=== PATIENT | female | born 1955 | race Caucasian/White ===

== ENCOUNTER 2017-09-12 08:00 | Inpatient (IN) | payer BC ==
[~2017-09-12] VITALS: Ht 172.7 cm; Wt 98.4 kg
[2017-09-19] MEDS ORDERED: RINGERS SOLUTION,LACTATED 1,000 ML IV ONE ×2 (10:30→10:37)
[2017-09-19] MEDS ORDERED: LIDOCAINE HCL/PF 1% 5 ML VIAL ONE (11:03)
[2017-09-19] MEDS ORDERED: SODIUM CHLORIDE 0.9% 10 ML ONE (11:07)
[2017-09-19] MEDS ORDERED: BACITRACIN 50,000 UNITS/VIAL ONE (11:08)
[2017-09-19] MEDS ORDERED: SODIUM CL IRRIG SOLN BAG 3,000 ML IRRIG ONE (11:08)
[2017-09-19] MEDS ORDERED: MIDAZOLAM HCL 5 MG/ML VIAL ONE (11:09)
[2017-09-19] MEDS ORDERED: SODIUM HYPOCHLORITE 0.25% [HALF STRENGTH] 473 ML SOLUTION TP ONE (11:15)
[2017-09-19] MEDS ORDERED: MOM30 PO (11:32)
[2017-09-19] MEDS ORDERED: ALPR0.5T8 PO (11:32)
[2017-09-19] MEDS ORDERED: VALS80TA2 PO (11:32)
[2017-09-19] MEDS ORDERED: THIA100T67 PO (11:32)
[2017-09-19] MEDS ORDERED: ETHA25TA2 PO (11:32)
[2017-09-19] MEDS ORDERED: ONDA4 PO (11:32)
[2017-09-19] MEDS ORDERED: CITA10TA68 PO (11:32)
[2017-09-19] MEDS ORDERED: DOCU250C91 PO (11:32)
[2017-09-19] MEDS ORDERED: A20IH1 IH (11:32)
[2017-09-19] MEDS ORDERED: ASPI81 PO (11:32)
[2017-09-19] MEDS ORDERED: POLY15DR38 OU (11:32)
[2017-09-19] MEDS ORDERED: MULT-248 PO (11:32)
[2017-09-19] MEDS ORDERED: HYDR1VIA2 IVP (11:32)
[2017-09-19] MEDS ORDERED: MAGOX PO (11:32)
[2017-09-19] MEDS ORDERED: ACET-2247 PO (11:32)
[2017-09-19] MEDS ORDERED: METO50 PO (11:32)
[2017-09-19] MEDS ORDERED: LACT30L PO (11:32)
[2017-09-19] MEDS ORDERED: INSNOV SQ (11:32)
[2017-09-19] MEDS ORDERED: PROT480P PO (11:32)
[2017-09-19] MEDS ORDERED: ACET500C44 PO (11:32)
[2017-09-19] MEDS ORDERED: DIPH50 PO (11:32)
[2017-09-19] MEDS ORDERED: FAMO20 PO (11:32)
[2017-09-19] MEDS ORDERED: CARV6 PO (11:32)
[2017-09-19] MEDS ORDERED: FERR-89 PO (11:32)
[2017-09-19] MEDS ORDERED: HYDR-309 PO (11:32)
[2017-09-19] MEDS ORDERED: ATOR40TA28 PO (11:32)
[2017-09-19] MEDS ORDERED: SENN-175 PO (11:32)
[2017-09-19 11:41] LABS: BASOPHILS % (AUTO) 0.6 % (0.0-2.0); EOSINOPHILS % (AUTO) 1.7 % (1.0-6.0); HEMATOCRIT 27.7 % (36-46); HEMOGLOBIN 8.4 g/dL (12.0-16.0); LYMPHOCYTES % (AUTO) 19.9 % (22.0-44.0); MEAN CORPUSCULAR HEMOGLOBIN 25.8 pg (26.0-34.0); MEAN CORPUSCULAR HGB CONC 30.2 G/dL (31.0-37.0); MEAN CORPUSCULAR VOLUME 86 fL (80-100); MONOCYTES # (AUTO) 0.2 K/uL (0.1-1.0); MONOCYTES % (AUTO) 4.9 % (2.0-9.0); NEUTROPHILS # (AUTO) 3.6 K/uL (1.8-7.7); NEUTROPHILS % (AUTO) 72.9 % (40.0-70.0); PLATELET COUNT (AUTO) 203 K/uL (150-450); RED BLOOD CELL COUNT(AUTO) 3.24 MIL/uL (4.00-5.20); RED CELL DISTRIBUTION WIDTH 17.9 % (11.5-14.5)
[2017-09-19 11:48] LABS: ANION GAP 1 mmol/L (8-16); CALCIUM, TOTAL 8.7 mg/dL (8.8-10.5); CARBON DIOXIDE 38 mmol/L (22-29); CHLORIDE 102 mmol/L (98-107); CREATININE 0.67 mg/dL (0.60-1.30); GLOMERULAR FILTR. RATE CALC > 60 mL/min (>60); GLUCOSE,RANDOM 136 mg/dL (70-110); POTASSIUM 3.9 mmol/L (3.5-5.1); SODIUM SERUM 141 mmol/L (136-145); UREA NITROGEN, BLOOD 36 mg/dL (7-18)
[2017-09-19 11:49] LABS: INR 1.1 (0.9-1.1)
[2017-09-19 11:54] LABS: ALANINE AMINOTRANSFERASE 22 U/L (12-78); ALBUMIN 2.4 g/dL (3.4-5.0); ALKALINE PHOSPHATASE 76 U/L (46-116); ASPARTATE AMINOTRANSFERASE 18 U/L (15-37); BILIRUBIN,TOTAL 0.2 mg/dL (0.1-1.0); TOTAL PROTEIN, SERUM 6.9 g/dL (6.4-8.2)
[2017-09-19] MEDS ORDERED: HYDROmorphone 2 MG/ML SYRINGE IVP PRN (12:15)
[2017-09-19] MEDS ORDERED: MEPERIDINE HCL/PF 25 MG/0.5 ML AMP IVP PRN (12:15)
[2017-09-19] MEDS ORDERED: GENTAMICIN SULFATE 40 MG/ML 2 ML VIAL IM ONE (12:30)
[2017-09-19] MEDS ORDERED: BUPIVACAINE LIPOSOME/PF 1.3%-13.3MG/ML SUSPENSION 20 ML VIAL INJ ONE (12:45)
[2017-09-19] MEDS ORDERED: BUPIVACAINE HCL/PF 0.25% 30 ML VIAL ONE (12:48)
[2017-09-19] MEDS ORDERED: METHYLENE BLUE 1% 10 ML VIAL ONE (13:01)
[2017-09-19] MEDS ORDERED: SODIUM CHLORIDE 0.9% 1,000 ML IV ONE (13:07)
[2017-09-19] MEDS ORDERED: GELATIN SPONGE,ABSORBABLE 100 MM TP ONE ×3 (13:15→13:57)
[2017-09-19] MEDS ORDERED: THROMBIN, BOVINE 20000 UNITS/VIAL POWDER TP ONE ×2 (13:16→13:22)
[2017-09-19 13:26] VITALS: BP 109/67
[2017-09-19 14:19] VITALS: BP 91/58
[2017-09-19] MEDS ORDERED: CeFAZolin 1 GM/DEXTROSE 50 ML IV SCH ×2 (16:00→21:00)
[2017-09-19] MEDS ORDERED: FentaNYL CITRATE-PF 100 MCG/2 ML VIAL ONE ×2 (16:08→16:40)
[2017-09-19] MEDS: FentaNYL CITRATE-PF 100 MCG/2 ML VIAL IVP PRN ×3 (16:12→16:44)
[2017-09-19 17:24] LABS: BASOPHILS % (AUTO) 0.5 % (0.0-2.0); EOSINOPHILS % (AUTO) 0.3 % (1.0-6.0); HEMATOCRIT 29.7 % (36-46); HEMOGLOBIN 9.4 g/dL (12.0-16.0); LYMPHOCYTES % (AUTO) 9.4 % (22.0-44.0); MEAN CORPUSCULAR HEMOGLOBIN 27.6 pg (26.0-34.0); MEAN CORPUSCULAR HGB CONC 31.7 G/dL (31.0-37.0); MEAN CORPUSCULAR VOLUME 87 fL (80-100); MONOCYTES # (AUTO) 0.2 K/uL (0.1-1.0); MONOCYTES % (AUTO) 1.5 % (2.0-9.0); PLATELET COUNT (AUTO) 212 K/uL (150-450); RED BLOOD CELL COUNT(AUTO) 3.41 MIL/uL (4.00-5.20); RED CELL DISTRIBUTION WIDTH 16.9 % (11.5-14.5)
[2017-09-19 17:29] LABS: NEUTROPHILS % (AUTO) 88.3 % (40.0-70.0)
[2017-09-19] MEDS ORDERED: MORPHINE SULFATE 2 MG/ML SYRINGE IVP PRN (17:30)
[2017-09-19] MEDS ORDERED: ACETAMINOPHEN 325 MG TABLET PO PRN ×2 (17:45→22:00)
[2017-09-19 17:50] VITALS: BP 125/94
[2017-09-19] MEDS ORDERED: VANCOMYCIN HCL 1 GM/D5% WATER 200 ML IV ONE (18:00)
[2017-09-19] MEDS ORDERED: DiphenhydrAMINE HCL 25 MG CAPSULE PO PRN (18:00)
[2017-09-19 18:05] VITALS: BP 101/47
[2017-09-19] MEDS ORDERED: ALBUTEROL SULFATE 2.5 MG/0.5 ML NEB SOLUTION NEB PRN (18:15)
[2017-09-19] MEDS: BACLOFEN 10 MG TABLET PO SCH ×2 (18:20→21:07)
[2017-09-19] MEDS ORDERED: SODIUM CHLORIDE 0.9% 250 ML IV ONE (18:25)
[2017-09-19] MEDS ORDERED: ONDANSETRON HCL 4 MG/2 ML VIAL IVP PRN ×2 (18:30→22:00)
[2017-09-19] MEDS ORDERED: DEXTRAN 70 0.1%/HYPROMELL 0.3% 0.9 ML OPHTHALMIC SOLUTION [PF] OU PRN (18:45)
[2017-09-19 20:00] VITALS: BP 180/98
[2017-09-19] MEDS ORDERED: HYDROmorphone 2 MG/ML SYRINGE IVP ONE (20:45)
[2017-09-19] MEDS ORDERED: CARVEDILOL 6.25 MG TABLET PO SCH (21:00)
[2017-09-19] MEDS ORDERED: [UNRECOGNIZED DRUG - OTHER] PO SCH (21:00)
[2017-09-19] MEDS: ATORVASTATIN CALCIUM 40 MG TABLET PO SCH (21:07)
[2017-09-19] MEDS: VALSARTAN 80 MG TABLET PO SCH (21:07)
[2017-09-19] MEDS: MAGNESIUM OXIDE 400 MG TABLET PO SCH (21:07)
[2017-09-19 21:08] VITALS: BP 133/23
[2017-09-19] MEDS: AcetaZOLAMIDE 250 MG TABLET PO SCH (21:08)
[2017-09-19] MEDS: OXYGEN THERAPY IH SCH ×2 (21:09→22:32)
[2017-09-19] MEDS ORDERED: ZOLPIDEM TARTRATE 5 MG TABLET PO PRN (22:00)
[2017-09-19] MEDS ORDERED: BISACODYL 10 MG RECTAL RECTAL SUPPOSITORY PR PRN (22:00)
[2017-09-19] MEDS ORDERED: MAGNESIUM HYDROXIDE SUSPENSION 30 ML UDCUP PO PRN (22:00)
[2017-09-19] MEDS: METOPROLOL TARTRATE 50 MG TABLET PO SCH (22:32)
[2017-09-19] MEDS: ALPRAZolam 0.5 MG TABLET PO PRN (22:32)
[2017-09-19] MEDS: VANCOMYCIN HCL 1.25 GM in DEXTROSE 5%-WATER 250 ML IV SCH (23:06)
[2017-09-20] VITALS (12 sets, daily range): BP systolic 95–136; BP diastolic 36–98
[2017-09-20] MEDS: HYDROCODONE/ACETAMINOPHEN 5-325 MG TABLET PO PRN ×2 (01:53→06:56)
[2017-09-20] MEDS: MORPHINE SULFATE 2 MG/ML SYRINGE IVP PRN ×3 (05:11→23:03)
[2017-09-20 05:21] LABS: CALCIUM, TOTAL 8.3 mg/dL (8.8-10.5); CREATININE 1.06 mg/dL (0.60-1.30); POTASSIUM 3.8 mmol/L (3.5-5.1)
[2017-09-20] MEDS ORDERED: METOCLOPRAMIDE HCL 5 MG/ML 2 ML VIAL IVP ONE (05:24)
[2017-09-20] MEDS ORDERED: LIDOCAINE HCL/PF 2% 5 ML VIAL IM ONE (05:24)
[2017-09-20] MEDS ORDERED: KETAMINE HCL 50 MG/ML 10 ML VIAL IVP ONE (05:24)
[2017-09-20] MEDS ORDERED: FentaNYL CITRATE-PF 100 MCG/2 ML VIAL IVP ONE (05:24)
[2017-09-20] MEDS ORDERED: PROPOFOL 1% 20 ML VIAL IVP ONE (05:24)
[2017-09-20] MEDS ORDERED: GLYCOPYRROLATE 0.2 MG/ML VIAL IM ONE ×2 (05:24→05:59)
[2017-09-20] MEDS ORDERED: NEOSTIGMINE METHYLSULFATE 1 MG/ML 10 ML VIAL IVP ONE ×2 (05:24→05:59)
[2017-09-20] MEDS ORDERED: MIDAZOLAM HCL 2 MG/2 ML VIAL IVP ONE (05:24)
[2017-09-20] MEDS ORDERED: ACETAMINOPHEN/ISO-OSM 1000 MG/100 ML BOTTLE IV ONE (05:24)
[2017-09-20] MEDS ORDERED: ROCURONIUM BROMIDE 10 MG/ML 5 ML VIAL IVP ONE ×2 (05:24→05:59)
[2017-09-20] MEDS ORDERED: ALBUMIN HUMAN 25%-12.5GM/50ML IV BOTTLE IV ONE (05:24)
[2017-09-20] MEDS ORDERED: SUCCINYLCHOLINE CHLORIDE 20 MG/ML 10 ML VIAL IVP ONE (05:24)
[2017-09-20] MEDS ORDERED: ALBUTEROL SULFATE HFA 90 MCG/PUFF 8 GM INHALER IH ONE (05:59)
[2017-09-20] MEDS: VANCOMYCIN HCL 1.25 GM in DEXTROSE 5%-WATER 250 ML IV SCH ×3 (06:21→22:39)
[2017-09-20] MEDS: INSULIN LISPRO 100 UNITS/ML SQ SCH ×3 (06:22→16:45)
[2017-09-20 06:48] LABS: GLUCOSE,POINT OF CARE 202 MG/DL (70-110)
[2017-09-20] MEDS: FERROUS SULFATE 325 MG EC TABLET PO SCH ×3 (08:33→16:44)
[2017-09-20] MEDS: AcetaZOLAMIDE 250 MG TABLET PO SCH ×2 (08:33→21:12)
[2017-09-20] MEDS: PANTOPRAZOLE SODIUM 40 MG DR TABLET PO SCH (08:33)
[2017-09-20] MEDS: FAMOTIDINE 20 MG TABLET PO SCH (08:33)
[2017-09-20] MEDS: BACLOFEN 10 MG TABLET PO SCH ×3 (08:33→21:11)
[2017-09-20] MEDS: HEPARIN SODIUM,PORCINE 5,000 UNITS/ML VIAL SQ SCH ×4 (08:33→23:04)
[2017-09-20] MEDS: THIAMINE HCL 100 MG TABLET PO SCH (08:33)
[2017-09-20] MEDS: MULTIVITAMINS WITH MINERALS, THERAPEUTIC TABLET PO SCH (08:33)
[2017-09-20] MEDS: CITALOPRAM HYDROBROMIDE 10 MG TABLET PO SCH (08:33)
[2017-09-20] MEDS: MAGNESIUM OXIDE 400 MG TABLET PO SCH ×2 (08:33→21:12)
[2017-09-20] MEDS: DOCUSATE SODIUM 100 MG CAPSULE PO SCH ×2 (08:33→21:12)
[2017-09-20] MEDS: ASPIRIN 81 MG CHEWABLE TABLET PO SCH (08:34)
[2017-09-20] MEDS: ALPRAZolam 0.5 MG TABLET PO PRN (08:39)
[2017-09-20] MEDS: OxyCODONE HCL/ACETAMINOPHEN 5-325 MG TABLET PO PRN (08:39)
[2017-09-20] MEDS: METOPROLOL TARTRATE 50 MG TABLET PO SCH ×2 (09:00→22:39)
[2017-09-20] MEDS: VALSARTAN 80 MG TABLET PO SCH ×2 (09:00→21:14)
[2017-09-20] MEDS: OXYGEN THERAPY IH SCH ×2 (09:10→21:14)
[2017-09-20] MEDS: ETHACRYNIC ACID 25 MG PO SCH ×2 (10:40→21:11)
[2017-09-20] MEDS: INSULIN LISPRO 100 UNITS/ML SQ PRN (11:57)
[2017-09-20 14:04] LABS: GLUCOSE,POINT OF CARE 142 MG/DL (70-110)
[2017-09-20] MEDS: TraMADol HCL 50 MG TABLET PO PRN ×2 (14:19→21:12)
[2017-09-20 18:23] LABS: GLUCOSE,POINT OF CARE 84 MG/DL (70-110)
[2017-09-20] MEDS: ATORVASTATIN CALCIUM 40 MG TABLET PO SCH (21:12)
[2017-09-20 23:28] LABS: GLUCOSE,POINT OF CARE 91 MG/DL (70-110)
[2017-09-21] VITALS (12 sets, daily range): BP systolic 93–121; BP diastolic 37–89
[2017-09-21] MEDS: INSULIN LISPRO 100 UNITS/ML SQ SCH ×3 (06:25→17:30)
[2017-09-21] MEDS: VANCOMYCIN HCL 1.25 GM in DEXTROSE 5%-WATER 250 ML IV SCH (06:25)
[2017-09-21 06:51] LABS: B-TYPE NATRIURETIC PEPTIDE 89 pg/mL (0-100)
[2017-09-21] MEDS: TraMADol HCL 50 MG TABLET PO PRN ×2 (06:54→16:20)
[2017-09-21 06:58] LABS: GLUCOSE,POINT OF CARE 109 MG/DL (70-110)
[2017-09-21 06:59] LABS: ANION GAP 2 mmol/L (8-16); BASOPHILS % (AUTO) 0.3 % (0.0-2.0); CALCIUM, TOTAL 8.4 mg/dL (8.8-10.5); CARBON DIOXIDE 34 mmol/L (22-29); CHLORIDE 99 mmol/L (98-107); CREATINE KINASE, TOTAL 44 U/L (26-192); CREATININE 1.32 mg/dL (0.60-1.30); EOSINOPHILS % (AUTO) 1.3 % (1.0-6.0); GLOMERULAR FILTR. RATE CALC 41 mL/min (>60); GLUCOSE,RANDOM 109 mg/dL (70-110); HEMATOCRIT 22.8 % (36-46); HEMOGLOBIN 7.2 g/dL (12.0-16.0); LYMPHOCYTES # (AUTO) 1.8 K/uL (1.0-4.8); LYMPHOCYTES % (AUTO) 9.6 % (22.0-44.0); MEAN CORPUSCULAR HEMOGLOBIN 27.8 pg (26.0-34.0); MEAN CORPUSCULAR HGB CONC 31.7 G/dL (31.0-37.0); MEAN CORPUSCULAR VOLUME 88 fL (80-100); MONOCYTES # (AUTO) 0.8 K/uL (0.1-1.0); MONOCYTES % (AUTO) 4.3 % (2.0-9.0); NEUTROPHILS # (AUTO) 15.5 K/uL (1.8-7.7); NEUTROPHILS % (AUTO) 84.5 % (40.0-70.0); PLATELET COUNT (AUTO) 215 K/uL (150-450); POTASSIUM 3.9 mmol/L (3.5-5.1); SODIUM SERUM 135 mmol/L (136-145); UREA NITROGEN, BLOOD 43 mg/dL (7-18); VANCOMYCIN,RANDOM 46.6 mcg/mL (25.0-50.0)
[2017-09-21] MEDS: ASPIRIN 81 MG CHEWABLE TABLET PO SCH (08:24)
[2017-09-21] MEDS: ETHACRYNIC ACID 25 MG PO SCH ×2 (08:24→19:40)
[2017-09-21] MEDS: THIAMINE HCL 100 MG TABLET PO SCH (08:24)
[2017-09-21] MEDS: HEPARIN SODIUM,PORCINE 5,000 UNITS/ML VIAL SQ SCH ×3 (08:24→23:13)
[2017-09-21] MEDS: FERROUS SULFATE 325 MG EC TABLET PO SCH ×3 (08:25→18:28)
[2017-09-21] MEDS: PANTOPRAZOLE SODIUM 40 MG DR TABLET PO SCH (08:25)
[2017-09-21] MEDS: MAGNESIUM OXIDE 400 MG TABLET PO SCH ×2 (08:25→19:39)
[2017-09-21] MEDS: MULTIVITAMINS WITH MINERALS, THERAPEUTIC TABLET PO SCH (08:25)
[2017-09-21] MEDS: AcetaZOLAMIDE 250 MG TABLET PO SCH ×2 (08:25→19:42)
[2017-09-21] MEDS: OXYGEN THERAPY IH SCH (08:25)
[2017-09-21] MEDS: CITALOPRAM HYDROBROMIDE 10 MG TABLET PO SCH (08:25)
[2017-09-21] MEDS: BACLOFEN 10 MG TABLET PO SCH ×3 (08:25→19:39)
[2017-09-21] MEDS: FAMOTIDINE 20 MG TABLET PO SCH (08:25)
[2017-09-21] MEDS: VALSARTAN 80 MG TABLET PO SCH ×2 (08:26→19:39)
[2017-09-21] MEDS: DOCUSATE SODIUM 100 MG CAPSULE PO SCH ×2 (08:26→19:39)
[2017-09-21] MEDS: METOPROLOL TARTRATE 50 MG TABLET PO SCH ×2 (08:26→19:42)
[2017-09-21] MEDS: SODIUM CHLORIDE 0.9% 1,000 ML IV SCH (10:43)
[2017-09-21] MEDS ORDERED: SODIUM CHLORIDE 0.9% 500 ML IV ONE (11:09)
[2017-09-21] MEDS ORDERED: VANCOMYCIN HCL 1 GM/D5% WATER 200 ML IV PRN (11:30)
[2017-09-21] MEDS ORDERED: CeFAZolin 1 GM/DEXTROSE 50 ML IV SCH (14:45)
[2017-09-21 16:08] LABS: APPEARANCE,URINE TURBID (CLEAR); BILIRUBIN,URINE NEGATIVE (NEGATIVE); GLUCOSE, URINE (UA) NEGATIVE (NEGATIVE); KETONES,URINE NEGATIVE (NEGATIVE); LEUKOCYTE ESTERASE ,URINE LARGE (NEGATIVE); NITRATE,URINE NEGATIVE (NEGATIVE); OCCULT BLOOD,URINE MODERATE (NEGATIVE); PROTEIN,URINE TRACE (NEGATIVE); UROBILINOGEN,URINE 0.2 mg/dL (<=1.0)
[2017-09-21 16:24] LABS: BACTERIA,URINE Moderate /HPF (None Seen); WBC,URINE >100 /HPF (0-5)
[2017-09-21 16:25] LABS: SQUAMOUS EPITHELIAL CELL,UR Few /LPF (None Seen); YEAST,URINE Many /HPF (None Seen)
[2017-09-21 17:33] LABS: HEMATOCRIT 26.3 % (36-46); HEMOGLOBIN 8.4 g/dL (12.0-16.0)
[2017-09-21 18:34] LABS: GLUCOSE,POINT OF CARE 125 MG/DL (70-110)
[2017-09-21] MEDS: HYDROCODONE/ACETAMINOPHEN 5-325 MG TABLET PO PRN (18:57)
[2017-09-21] MEDS: ATORVASTATIN CALCIUM 40 MG TABLET PO SCH (19:39)
[2017-09-22] VITALS (29 sets, daily range): BP systolic 83–153; BP diastolic 39–75
[2017-09-22] MEDS: ALPRAZolam 0.5 MG TABLET PO PRN (04:17)
[2017-09-22] MEDS: INSULIN LISPRO 100 UNITS/ML SQ PRN (06:26)
[2017-09-22 08:14] LABS: HEMOGLOBIN 8.1 g/dL (12.0-16.0); MEAN CORPUSCULAR HEMOGLOBIN 27.2 pg (26.0-34.0); MEAN CORPUSCULAR HGB CONC 31.3 G/dL (31.0-37.0); MEAN CORPUSCULAR VOLUME 87 fL (80-100); PLATELET COUNT (AUTO) 259 K/uL (150-450); RED CELL DISTRIBUTION WIDTH 18.3 % (11.5-14.5)
[2017-09-22] MEDS: SODIUM CHLORIDE 0.9% 1,000 ML IV SCH (08:38)
[2017-09-22 08:39] LABS: GLUCOMETER DEV NAME(LOC) 5S 1M; GLUCOSE,POINT OF CARE 138 MG/DL (70-110)
[2017-09-22] MEDS: OXYGEN THERAPY IH SCH ×3 (08:44→20:00)
[2017-09-22] MEDS: FAMOTIDINE 20 MG TABLET PO SCH (08:46)
[2017-09-22] MEDS: MULTIVITAMINS WITH MINERALS, THERAPEUTIC TABLET PO SCH (08:46)
[2017-09-22] MEDS: MAGNESIUM OXIDE 400 MG TABLET PO SCH ×2 (08:46→23:22)
[2017-09-22] MEDS: AcetaZOLAMIDE 250 MG TABLET PO SCH ×2 (08:46→23:21)
[2017-09-22] MEDS: CITALOPRAM HYDROBROMIDE 10 MG TABLET PO SCH (08:46)
[2017-09-22] MEDS: VALSARTAN 80 MG TABLET PO SCH ×2 (08:46→23:21)
[2017-09-22] MEDS: THIAMINE HCL 100 MG TABLET PO SCH (08:46)
[2017-09-22] MEDS: PANTOPRAZOLE SODIUM 40 MG DR TABLET PO SCH (08:46)
[2017-09-22] MEDS: HEPARIN SODIUM,PORCINE 5,000 UNITS/ML VIAL SQ SCH ×2 (08:46→16:00)
[2017-09-22] MEDS: ASPIRIN 81 MG CHEWABLE TABLET PO SCH (08:49)
[2017-09-22] MEDS: METOPROLOL TARTRATE 50 MG TABLET PO SCH ×2 (08:49→23:22)
[2017-09-22] MEDS: FERROUS SULFATE 325 MG EC TABLET PO SCH ×3 (08:49→18:00)
[2017-09-22] MEDS: BACLOFEN 10 MG TABLET PO SCH ×3 (08:49→23:20)
[2017-09-22] MEDS: DOCUSATE SODIUM 100 MG CAPSULE PO SCH (08:50)
[2017-09-22] MEDS: ETHACRYNIC ACID 25 MG PO SCH ×2 (08:50→23:20)
[2017-09-22] MEDS: INSULIN LISPRO 100 UNITS/ML SQ SCH ×3 (08:52→17:30)
[2017-09-22 08:53] LABS: CALCIUM, TOTAL 8.3 mg/dL (8.8-10.5); CREATININE 1.12 mg/dL (0.60-1.30); POTASSIUM 3.8 mmol/L (3.5-5.1); VANCOMYCIN,RANDOM 39.5 mcg/mL (25.0-50.0)
[2017-09-22 10:01] LABS: BAND NEUTROPHILS % (MANUAL) 3 % (0-5); EOSINOPHILS % (MANUAL) 1 % (1-6); LYMPHOCYTES % (MANUAL) 8 % (22-44); MONOCYTES % (MANUAL) 4 % (2-9); PROMYELOCYTES % 2 (0-0); SEGMENTED NEUTROPHILS % 82 % (40-70)
[2017-09-22 12:35] LABS: GLUCOMETER DEV NAME(LOC) 5S 1M; GLUCOSE,POINT OF CARE 132 MG/DL (70-110)
[2017-09-22 12:35] LABS: GLUCOMETER DEV NAME(LOC) 5S 1M; GLUCOSE,POINT OF CARE 87 MG/DL (70-110)
[2017-09-22] MEDS ORDERED: ETOMIDATE 2 MG/ML 10 ML VIAL IV ONE (17:46)
[2017-09-22 18:29] LABS: GLUCOMETER DEV NAME(LOC) 5S 2Q; GLUCOSE,POINT OF CARE 153 MG/DL (70-110)
[2017-09-22 18:29] LABS: GLUCOMETER DEV NAME(LOC) 5S 2Q; GLUCOSE,POINT OF CARE 109 MG/DL (70-110)
[2017-09-22 18:35] LABS: GLUCOMETER DEV NAME(LOC) 5S 2Q; GLUCOSE,POINT OF CARE 88 MG/DL (70-110)
[2017-09-22 20:00] LABS: ABG A-A DIFF O2 419.6 mmHg (10-20.0); ABG BASE EXCESS 1.6 mmol/L (-2.0-3.0); ABG CARBOXYHEMOGLOBIN 1.9 % (0.0-1.5); ABG HCO3 24.3 mmol/L (22.0-26.0); ABG METHEMOGLOBIN 0.2 % (0.0-1.5); ABG OXYGEN CONTENT 15.5 mL/dL (15.0-23.0); ABG OXYGEN SATURATION 99.5 % (95.0-98.0); ABG OXYHEMOGLOBIN 97.4 % (94.0-100.0); PO2, ARTERIAL BG 199.3 mmHg (79.0-87.0); SOURCE, BLOOD GAS ARTERIAL; TEMPERATURE, FAHRENHEIT, BG 98.6 FAHREN (96.0-98.6)
[2017-09-22 20:03] LABS: ABG PCO2 94 mmHg (35-45); ABG PH 7.132 (7.35-7.450); O2 DEVICE,BLOOD GAS NON REBREATHER (ROOM AIR); SITE, BLOOD GAS RT RADIAL
[2017-09-22] MEDS ORDERED: FLUMAZENIL 0.1 MG/ML 5 ML VIAL IVP ONE (20:30)
[2017-09-22 20:57] LABS: HEMATOCRIT 31.9 % (36-46); HEMOGLOBIN 9.9 g/dL (12.0-16.0); MEAN CORPUSCULAR HEMOGLOBIN 27.6 pg (26.0-34.0); MEAN CORPUSCULAR VOLUME 89 fL (80-100); PLATELET COUNT (AUTO) 253 K/uL (150-450); RED BLOOD CELL COUNT(AUTO) 3.58 MIL/uL (4.00-5.20); RED CELL DISTRIBUTION WIDTH 19.3 % (11.5-14.5)
[2017-09-22 21:31] LABS: ABG A-A DIFF O2 523.3 mmHg (10-20.0); ABG BASE EXCESS 2.7 mmol/L (-2.0-3.0); ABG CARBOXYHEMOGLOBIN 1.5 % (0.0-1.5); ABG HCO3 25.2 mmol/L (22.0-26.0); ABG METHEMOGLOBIN 0.4 % (0.0-1.5); ABG OXYGEN SATURATION 95.2 % (95.0-98.0); ABG OXYHEMOGLOBIN 93.4 % (94.0-100.0); ABG TOTAL HEMOGLOBIN 10.6 G/dL (12.0-18.0); PO2, ARTERIAL BG 89.2 mmHg (79.0-87.0); SOURCE, BLOOD GAS ARTERIAL
[2017-09-22 21:32] LABS: ABG PCO2 98 mmHg (35-45); ABG PH 7.131 (7.35-7.450); O2 DEVICE,BLOOD GAS NON REBREATHER (ROOM AIR); SITE, BLOOD GAS RT RADIAL
[2017-09-22 21:45] LABS: CALCIUM, TOTAL 8.5 mg/dL (8.8-10.5); CREATININE 1.4 mg/dL (0.60-1.30); POTASSIUM 3.8 mmol/L (3.5-5.1)
[2017-09-22 21:51] LABS: ALBUMIN 2.3 g/dL (3.4-5.0); BILIRUBIN,TOTAL 0.5 mg/dL (0.1-1.0); TOTAL PROTEIN, SERUM 6.6 g/dL (6.4-8.2)
[2017-09-22 21:55] LABS: BAND NEUTROPHILS % (MANUAL) 15 % (0-5); LYMPHOCYTES % (MANUAL) 3 % (22-44); MONOCYTES % (MANUAL) 7 % (2-9); SEGMENTED NEUTROPHILS % 75 % (40-70)
[2017-09-22] MEDS ORDERED: SODIUM CHLORIDE 0.9% 250 ML IV ONE (22:24)
[2017-09-22] MEDS: POTASSIUM CHL 20 MEQ/0.9% NS 1,000 ML IV SCH ×2 (22:50→22:51)
[2017-09-22] MEDS ORDERED: MAGNESIUM HYDROXIDE SUSPENSION 30 ML UDCUP PO PRN (23:00)
[2017-09-22] MEDS: ATORVASTATIN CALCIUM 40 MG TABLET PO SCH (23:22)
[2017-09-22] MEDS: PROPOFOL 1000 MG/ISO-OSM 100 ML IV PRN (23:30)
[2017-09-23] VITALS (7 sets, daily range): BP systolic 125–163; BP diastolic 51–87
[2017-09-23 00:28] LABS: ABG A-A DIFF O2 127.9 mmHg (10-20.0); ABG BASE EXCESS 4.5 mmol/L (-2.0-3.0); ABG CARBOXYHEMOGLOBIN 1.7 % (0.0-1.5); ABG HCO3 28.2 mmol/L (22.0-26.0); ABG METHEMOGLOBIN 0.1 % (0.0-1.5); ABG OXYGEN CONTENT 13.4 mL/dL (15.0-23.0); ABG OXYGEN SATURATION 98.6 % (95.0-98.0); ABG OXYHEMOGLOBIN 96.8 % (94.0-100.0); ABG PCO2 43 mmHg (35-45); ABG PH 7.443 (7.35-7.450); ABG TOTAL HEMOGLOBIN 9.7 G/dL (12.0-18.0); O2 DEVICE,BLOOD GAS VENTILATOR (ROOM AIR); PO2, ARTERIAL BG 108.1 mmHg (79.0-87.0); SITE, BLOOD GAS RT RADIAL; SOURCE, BLOOD GAS ARTERIAL; TEMPERATURE, FAHRENHEIT, BG 98.6 FAHREN (96.0-98.6)
[2017-09-23 00:29] LABS: PEEP,BG 5 cm H2O; VT, ABG 550 ml
[2017-09-23] MEDS: DEXTROSE 50%-WATER 25 GM/50 ML SYRINGE IVP PRN ×2 (00:34→06:27)
[2017-09-23 01:29] LABS: GLUCOMETER DEV NAME(LOC) 5S 1M; GLUCOSE,POINT OF CARE 90 MG/DL (70-110)
[2017-09-23] MEDS: PROPOFOL 1000 MG/ISO-OSM 100 ML IV PRN ×5 (01:48→20:05)
[2017-09-23] MEDS: POTASSIUM CHL 20 MEQ/0.9% NS 1,000 ML IV SCH ×2 (03:27→12:09)
[2017-09-23 05:27] LABS: BASOPHILS % (AUTO) 0.2 % (0.0-2.0); EOSINOPHILS % (AUTO) 0.6 % (1.0-6.0); HEMATOCRIT 28.1 % (36-46); HEMOGLOBIN 9.1 g/dL (12.0-16.0); LYMPHOCYTES # (AUTO) 1.3 K/uL (1.0-4.8); LYMPHOCYTES % (AUTO) 9.6 % (22.0-44.0); MEAN CORPUSCULAR HEMOGLOBIN 27.9 pg (26.0-34.0); MEAN CORPUSCULAR HGB CONC 32.4 G/dL (31.0-37.0); MEAN CORPUSCULAR VOLUME 86 fL (80-100); MONOCYTES # (AUTO) 0.7 K/uL (0.1-1.0); MONOCYTES % (AUTO) 5.1 % (2.0-9.0); NEUTROPHILS # (AUTO) 11.7 K/uL (1.8-7.7); NEUTROPHILS % (AUTO) 84.5 % (40.0-70.0); PLATELET COUNT (AUTO) 207 K/uL (150-450); RED BLOOD CELL COUNT(AUTO) 3.26 MIL/uL (4.00-5.20); RED CELL DISTRIBUTION WIDTH 18.7 % (11.5-14.5)
[2017-09-23 05:33] LABS: CALCIUM, TOTAL 8.4 mg/dL (8.8-10.5); CREATININE 1.26 mg/dL (0.60-1.30); POTASSIUM 3.4 mmol/L (3.5-5.1)
[2017-09-23] MEDS: INSULIN LISPRO 100 UNITS/ML SQ SCH ×3 (06:21→17:00)
[2017-09-23] MEDS: ETHACRYNIC ACID 25 MG PO SCH ×2 (08:28→22:18)
[2017-09-23] MEDS: VALSARTAN 80 MG TABLET PO SCH ×2 (08:29→22:45)
[2017-09-23] MEDS: FERROUS SULFATE 325 MG EC TABLET PO SCH ×3 (08:30→18:25)
[2017-09-23] MEDS: MULTIVITAMINS WITH MINERALS, THERAPEUTIC TABLET PO SCH (08:30)
[2017-09-23] MEDS: OXYGEN THERAPY IH SCH ×2 (08:31→19:54)
[2017-09-23 08:33] LABS: GLUCOSE,POINT OF CARE 128 MG/DL (70-110)
[2017-09-23 08:33] LABS: GLUCOSE,POINT OF CARE 64 MG/DL (70-110)
[2017-09-23 08:33] LABS: GLUCOSE,POINT OF CARE 72 MG/DL (70-110)
[2017-09-23 08:33] LABS: GLUCOSE,POINT OF CARE 124 MG/DL (70-110)
[2017-09-23 08:33] LABS: GLUCOSE,POINT OF CARE 65 MG/DL (70-110)
[2017-09-23] MEDS: THIAMINE HCL 100 MG TABLET PO SCH (08:33)
[2017-09-23] MEDS: ASPIRIN 81 MG CHEWABLE TABLET PO SCH (08:33)
[2017-09-23] MEDS: MAGNESIUM OXIDE 400 MG TABLET PO SCH ×2 (08:33→20:51)
[2017-09-23] MEDS: METOPROLOL TARTRATE 50 MG TABLET PO SCH ×2 (08:33→20:52)
[2017-09-23] MEDS: BACLOFEN 10 MG TABLET PO SCH ×3 (08:33→22:18)
[2017-09-23] MEDS: PANTOPRAZOLE SODIUM 40 MG DR TABLET PO SCH (08:33)
[2017-09-23] MEDS: FAMOTIDINE 20 MG TABLET PO SCH (08:34)
[2017-09-23] MEDS: CITALOPRAM HYDROBROMIDE 10 MG TABLET PO SCH (08:34)
[2017-09-23] MEDS: HEPARIN SODIUM,PORCINE 5,000 UNITS/ML VIAL SQ SCH ×4 (08:34→23:52)
[2017-09-23] MEDS: AcetaZOLAMIDE 250 MG TABLET PO SCH ×2 (08:37→20:54)
[2017-09-23] MEDS ORDERED: ASPIRIN 81 MG CHEWABLE TABLET PO SCH (09:00)
[2017-09-23] MEDS ORDERED: CITALOPRAM HYDROBROMIDE 10 MG TABLET PO SCH (09:00)
[2017-09-23] MEDS: AZTREONAM 2 GM in DEXTROSE 5%-WATER 50 ML IV SCH ×2 (15:42→22:47)
[2017-09-23] MEDS: RINGERS SOLUTION,LACTATED 1,000 ML IV SCH ×2 (15:43→23:53)
[2017-09-23 16:07] LABS: C.DIFF GDH ANTIGEN, Stool Negative (Negative); C.DIFF TOXINS A&B, Stool Negative (Negative)
[2017-09-23 20:09] LABS: GLUCOSE,POINT OF CARE 90 MG/DL (70-110)
[2017-09-23 20:09] LABS: GLUCOSE,POINT OF CARE 104 MG/DL (70-110)
[2017-09-23] MEDS: ATORVASTATIN CALCIUM 40 MG TABLET PO SCH (20:51)
[2017-09-23] MEDS: DOCUSATE SODIUM 250 MG CAPSULE PO SCH (20:55)
[2017-09-23] MEDS ORDERED: ATORVASTATIN CALCIUM 40 MG TABLET PO SCH (21:00)
[2017-09-23] MEDS: OxyCODONE HCL/ACETAMINOPHEN 5-325 MG TABLET PO PRN (23:17)
[2017-09-24 00:17] VITALS: BP 129/58
[2017-09-24 01:18] LABS: GLUCOSE,POINT OF CARE 121 MG/DL (70-110)
[2017-09-24 04:00] VITALS: BP 115/52
[2017-09-24 04:43] LABS: BASOPHILS % (AUTO) 0.5 % (0.0-2.0); EOSINOPHILS % (AUTO) 1.5 % (1.0-6.0); HEMATOCRIT 30.2 % (36-46); HEMOGLOBIN 9.7 g/dL (12.0-16.0); LYMPHOCYTES # (AUTO) 1.1 K/uL (1.0-4.8); LYMPHOCYTES % (AUTO) 8.3 % (22.0-44.0); MEAN CORPUSCULAR HEMOGLOBIN 27.5 pg (26.0-34.0); MEAN CORPUSCULAR VOLUME 86 fL (80-100); MONOCYTES # (AUTO) 0.8 K/uL (0.1-1.0); MONOCYTES % (AUTO) 5.8 % (2.0-9.0); NEUTROPHILS # (AUTO) 10.8 K/uL (1.8-7.7); NEUTROPHILS % (AUTO) 83.9 % (40.0-70.0); PLATELET COUNT (AUTO) 269 K/uL (150-450); RED BLOOD CELL COUNT(AUTO) 3.51 MIL/uL (4.00-5.20); RED CELL DISTRIBUTION WIDTH 19.6 % (11.5-14.5)
[2017-09-24 05:01] LABS: ANION GAP 9 mmol/L (8-16); CALCIUM, TOTAL 8.6 mg/dL (8.8-10.5); CARBON DIOXIDE 29 mmol/L (22-29); CHLORIDE 101 mmol/L (98-107); CREATINE KINASE, TOTAL 34 U/L (26-192); CREATININE 0.96 mg/dL (0.60-1.30); GLOMERULAR FILTR. RATE CALC 59 mL/min (>60); GLUCOSE,RANDOM 133 mg/dL (70-110); SODIUM SERUM 139 mmol/L (136-145); UREA NITROGEN, BLOOD 38 mg/dL (7-18)
[2017-09-24 05:06] LABS: B-TYPE NATRIURETIC PEPTIDE 149 pg/mL (0-100)
[2017-09-24 05:17] LABS: POTASSIUM 2.9 mmol/L (3.5-5.1)
[2017-09-24] MEDS ORDERED: POTASSIUM CHL 10 MEQ/WATER 50 ML IV PRN (05:45)
[2017-09-24] MEDS: POTASSIUM CHL 10 MEQ/WATER 50 ML IV PRN ×8 (06:04→23:12)
[2017-09-24] MEDS: INSULIN LISPRO 100 UNITS/ML SQ SCH ×3 (06:13→17:47)
[2017-09-24 06:49] LABS: GLUCOSE,POINT OF CARE 128 MG/DL (70-110)
[2017-09-24] MEDS: AZTREONAM 2 GM in DEXTROSE 5%-WATER 50 ML IV SCH ×3 (06:49→23:12)
[2017-09-24] MEDS: PROPOFOL 1000 MG/ISO-OSM 100 ML IV PRN ×4 (06:51→23:13)
[2017-09-24 08:00] VITALS: BP 135/65
[2017-09-24] MEDS: FERROUS SULFATE 325 MG EC TABLET PO SCH ×3 (08:52→16:42)
[2017-09-24] MEDS: HEPARIN SODIUM,PORCINE 5,000 UNITS/ML VIAL SQ SCH ×2 (08:52→16:41)
[2017-09-24] MEDS: OXYGEN THERAPY IH SCH ×2 (08:53→20:52)
[2017-09-24] MEDS: CITALOPRAM HYDROBROMIDE 10 MG TABLET PO SCH (08:58)
[2017-09-24] MEDS: FAMOTIDINE 20 MG TABLET PO SCH (08:58)
[2017-09-24] MEDS: BACLOFEN 10 MG TABLET PO SCH ×3 (08:59→20:55)
[2017-09-24] MEDS: MULTIVITAMINS WITH MINERALS, THERAPEUTIC TABLET PO SCH (09:00)
[2017-09-24] MEDS: VALSARTAN 80 MG TABLET PO SCH ×2 (09:00→20:55)
[2017-09-24] MEDS: THIAMINE HCL 100 MG TABLET PO SCH (09:00)
[2017-09-24] MEDS: MAGNESIUM OXIDE 400 MG TABLET PO SCH ×2 (09:00→20:56)
[2017-09-24] MEDS: AcetaZOLAMIDE 250 MG TABLET PO SCH ×2 (09:01→20:54)
[2017-09-24] MEDS: ASPIRIN 81 MG CHEWABLE TABLET PO SCH (09:01)
[2017-09-24] MEDS: METOPROLOL TARTRATE 50 MG TABLET PO SCH ×2 (09:01→20:56)
[2017-09-24] MEDS: ETHACRYNIC ACID 25 MG PO SCH ×2 (09:03→20:53)
[2017-09-24] MEDS: POTASSIUM CHLORIDE 10% 40 MEQ/30 ML LIQUID UDCUP NG PRN (09:04)
[2017-09-24] MEDS: PANTOPRAZOLE SODIUM 40 MG/VIAL IVP SCH (09:32)
[2017-09-24] MEDS: RINGERS SOLUTION,LACTATED 1,000 ML IV SCH ×2 (11:21→20:53)
[2017-09-24] MEDS: ALPRAZolam 0.5 MG TABLET PO PRN (11:26)
[2017-09-24] MEDS: BACITRACIN 28.4 GM OINTMENT TP SCH ×2 (11:27→20:57)
[2017-09-24 12:00] VITALS: BP 155/98
[2017-09-24 14:30] LABS: POTASSIUM 3.4 mmol/L (3.5-5.1)
[2017-09-24 16:00] VITALS: BP 163/76
[2017-09-24 16:43] LABS: MAGNESIUM 1.8 mg/dL (1.80-2.40)
[2017-09-24 20:00] VITALS: BP 176/84
[2017-09-24] MEDS ORDERED: SODIUM CHLORIDE 0.9% 250 ML IV ONE (20:50)
[2017-09-24] MEDS: DOCUSATE SODIUM 250 MG CAPSULE PO SCH (20:54)
[2017-09-24] MEDS: ATORVASTATIN CALCIUM 40 MG TABLET PO SCH (20:56)
[2017-09-25] VITALS (7 sets, daily range): BP systolic 136–175; BP diastolic 67–84
[2017-09-25] MEDS: HEPARIN SODIUM,PORCINE 5,000 UNITS/ML VIAL SQ SCH ×4 (00:22→23:50)
[2017-09-25] MEDS: PROPOFOL 1000 MG/ISO-OSM 100 ML IV PRN ×4 (02:41→20:02)
[2017-09-25 05:19] LABS: ANION GAP 9 mmol/L (8-16); CALCIUM, TOTAL 8.4 mg/dL (8.8-10.5); CARBON DIOXIDE 26 mmol/L (22-29); CHLORIDE 102 mmol/L (98-107); CREATININE 0.68 mg/dL (0.60-1.30); GLOMERULAR FILTR. RATE CALC > 60 mL/min (>60); GLUCOSE,RANDOM 158 mg/dL (70-110); SODIUM SERUM 137 mmol/L (136-145); UREA NITROGEN, BLOOD 30 mg/dL (7-18)
[2017-09-25 06:03] LABS: BASOPHILS % (AUTO) 0.2 % (0.0-2.0); EOSINOPHILS % (AUTO) 0.2 % (1.0-6.0); HEMATOCRIT 30.8 % (36-46); LYMPHOCYTES # (AUTO) 1.1 K/uL (1.0-4.8); LYMPHOCYTES % (AUTO) 8.9 % (22.0-44.0); MEAN CORPUSCULAR HEMOGLOBIN 27.9 pg (26.0-34.0); MEAN CORPUSCULAR HGB CONC 32.5 G/dL (31.0-37.0); MEAN CORPUSCULAR VOLUME 86 fL (80-100); MONOCYTES # (AUTO) 0.8 K/uL (0.1-1.0); MONOCYTES % (AUTO) 6.3 % (2.0-9.0); NEUTROPHILS # (AUTO) 10.7 K/uL (1.8-7.7); NEUTROPHILS % (AUTO) 84.4 % (40.0-70.0); PLATELET COUNT (AUTO) 314 K/uL (150-450); RED BLOOD CELL COUNT(AUTO) 3.59 MIL/uL (4.00-5.20); RED CELL DISTRIBUTION WIDTH 19.1 % (11.5-14.5)
[2017-09-25] MEDS: RINGERS SOLUTION,LACTATED 1,000 ML IV SCH ×2 (06:19→15:43)
[2017-09-25] MEDS: AZTREONAM 2 GM in DEXTROSE 5%-WATER 50 ML IV SCH ×3 (06:19→23:01)
[2017-09-25] MEDS: INSULIN LISPRO 100 UNITS/ML SQ SCH ×3 (06:21→17:39)
[2017-09-25] MEDS: POTASSIUM CHL 10 MEQ/WATER 50 ML IV PRN ×4 (06:26→09:49)
[2017-09-25 06:58] LABS: GLUCOSE,POINT OF CARE 96 MG/DL (70-110)
[2017-09-25 06:58] LABS: GLUCOSE,POINT OF CARE 125 MG/DL (70-110)
[2017-09-25 06:58] LABS: GLUCOSE,POINT OF CARE 155 MG/DL (70-110)
[2017-09-25 06:58] LABS: GLUCOSE,POINT OF CARE 131 MG/DL (70-110)
[2017-09-25] MEDS: OXYGEN THERAPY IH SCH ×2 (08:13→20:05)
[2017-09-25] MEDS: BACITRACIN 28.4 GM OINTMENT TP SCH ×2 (08:13→20:04)
[2017-09-25] MEDS: ASPIRIN 81 MG CHEWABLE TABLET PO SCH (08:15)
[2017-09-25] MEDS: THIAMINE HCL 100 MG TABLET PO SCH (08:15)
[2017-09-25] MEDS: PANTOPRAZOLE SODIUM 40 MG/VIAL IVP SCH (08:15)
[2017-09-25] MEDS: MAGNESIUM OXIDE 400 MG TABLET PO SCH ×2 (08:15→20:03)
[2017-09-25] MEDS: METOPROLOL TARTRATE 50 MG TABLET PO SCH ×2 (08:16→20:03)
[2017-09-25] MEDS: FERROUS SULFATE 325 MG EC TABLET PO SCH ×2 (08:16→12:16)
[2017-09-25] MEDS: VALSARTAN 80 MG TABLET PO SCH ×2 (09:41→20:02)
[2017-09-25] MEDS: AcetaZOLAMIDE 250 MG TABLET PO SCH ×2 (09:41→20:02)
[2017-09-25] MEDS: ETHACRYNIC ACID 25 MG PO SCH ×2 (09:41→20:02)
[2017-09-25] MEDS: FAMOTIDINE 20 MG TABLET PO SCH (09:42)
[2017-09-25] MEDS: CITALOPRAM HYDROBROMIDE 10 MG TABLET PO SCH (09:42)
[2017-09-25] MEDS: BACLOFEN 10 MG TABLET PO SCH ×3 (09:42→20:03)
[2017-09-25] MEDS: MULTIVITAMINS WITH MINERALS, THERAPEUTIC TABLET PO SCH (09:43)
[2017-09-25] MEDS: INSULIN LISPRO 100 UNITS/ML SQ PRN ×2 (12:20→17:41)
[2017-09-25] MEDS ORDERED: DEXTROSE 50%-WATER 25 GM/50 ML SYRINGE IVP PRN (12:30)
[2017-09-25 13:44] LABS: GLUCOSE,POINT OF CARE 154 MG/DL (70-110)
[2017-09-25] MEDS: AMINO ACIDS/PROTEIN HYDROLYS 30 ML TUBE PO SCH ×3 (13:51→20:59)
[2017-09-25] MEDS: FERROUS SULFATE 300 MG/5 ML LIQUID UDCUP NG SCH ×2 (15:45→20:02)
[2017-09-25 17:49] LABS: GLUCOSE,POINT OF CARE 141 MG/DL (70-110)
[2017-09-25] MEDS ORDERED: POTASSIUM CHL 10 MEQ/WATER 50 ML IV PRN (18:30)
[2017-09-25] MEDS ORDERED: POTASSIUM CHLORIDE 10% 40 MEQ/30 ML LIQUID UDCUP NG PRN (18:30)
[2017-09-25] MEDS: POTASSIUM CHLORIDE 10% 40 MEQ/30 ML LIQUID UDCUP NG PRN (18:53)
[2017-09-25] MEDS: ATORVASTATIN CALCIUM 40 MG TABLET PO SCH (20:03)
[2017-09-25] MEDS: DOCUSATE SODIUM 250 MG CAPSULE PO SCH (20:04)
[2017-09-26] VITALS (13 sets, daily range): BP systolic 125–166; BP diastolic 60–88
[2017-09-26] MEDS: PROPOFOL 1000 MG/ISO-OSM 100 ML IV PRN ×4 (01:02→20:29)
[2017-09-26] MEDS: POTASSIUM CHLORIDE 10% 40 MEQ/30 ML LIQUID UDCUP NG PRN (01:03)
[2017-09-26] MEDS: RINGERS SOLUTION,LACTATED 1,000 ML IV SCH (01:40)
[2017-09-26] MEDS ORDERED: SODIUM CHLORIDE 0.9% 250 ML IV ONE (03:51)
[2017-09-26] MEDS: INSULIN LISPRO 100 UNITS/ML SQ SCH ×3 (06:00→17:06)
[2017-09-26] MEDS: INSULIN LISPRO 100 UNITS/ML SQ PRN ×2 (06:01→17:04)
[2017-09-26] MEDS: AZTREONAM 2 GM in DEXTROSE 5%-WATER 50 ML IV SCH ×3 (06:01→23:28)
[2017-09-26 06:49] LABS: GLUCOSE,POINT OF CARE 135 MG/DL (70-110)
[2017-09-26 06:49] LABS: GLUCOSE,POINT OF CARE 163 MG/DL (70-110)
[2017-09-26 06:56] LABS: POTASSIUM 3.7 mmol/L (3.5-5.1)
[2017-09-26] MEDS: OXYGEN THERAPY IH SCH ×2 (08:00→20:28)
[2017-09-26 08:06] LABS: ABG A-A DIFF O2 69.1 mmHg (10-20.0); ABG CARBOXYHEMOGLOBIN 0.4 % (0.0-1.5); ABG METHEMOGLOBIN 0.3 % (0.0-1.5); ABG OXYGEN CONTENT 15.2 mL/dL (15.0-23.0); ABG OXYGEN SATURATION 99.1 % (95.0-98.0); ABG OXYHEMOGLOBIN 98.4 % (94.0-100.0); ABG PCO2 32 mmHg (35-45); ABG TOTAL HEMOGLOBIN 10.8 G/dL (12.0-18.0); O2 DEVICE,BLOOD GAS VENTILATOR (ROOM AIR); PEEP,BG 5 cm H2O; PO2, ARTERIAL BG 142.9 mmHg (79.0-87.0); SITE, BLOOD GAS RT RADIAL; SOURCE, BLOOD GAS ARTERIAL; SPONTANEOUS VT, BG 524 ml; TEMPERATURE, FAHRENHEIT, BG 98.6 FAHREN (96.0-98.6); VT, ABG 550 ml
[2017-09-26] MEDS: OxyCODONE HCL/ACETAMINOPHEN 5-325 MG TABLET PO PRN (08:26)
[2017-09-26] MEDS: FAMOTIDINE 20 MG TABLET PO SCH (09:00)
[2017-09-26] MEDS: AMINO ACIDS/PROTEIN HYDROLYS 30 ML TUBE PO SCH ×4 (09:00→20:39)
[2017-09-26] MEDS: HEPARIN SODIUM,PORCINE 5,000 UNITS/ML VIAL SQ SCH ×3 (09:36→23:28)
[2017-09-26] MEDS: PANTOPRAZOLE SODIUM 40 MG/VIAL IVP SCH (09:36)
[2017-09-26] MEDS: MULTIVITAMINS, THERAPEUTIC 15 ML UDCUP NG SCH (09:37)
[2017-09-26] MEDS: VALSARTAN 80 MG TABLET PO SCH (09:37)
[2017-09-26] MEDS: AcetaZOLAMIDE 250 MG TABLET PO SCH ×2 (09:38→20:38)
[2017-09-26] MEDS: CITALOPRAM HYDROBROMIDE 10 MG TABLET PO SCH (09:40)
[2017-09-26] MEDS: ETHACRYNIC ACID 25 MG PO SCH ×2 (09:40→20:37)
[2017-09-26] MEDS: BACLOFEN 10 MG TABLET PO SCH ×3 (09:41→20:37)
[2017-09-26] MEDS: FERROUS SULFATE 300 MG/5 ML LIQUID UDCUP NG SCH ×3 (09:42→20:36)
[2017-09-26] MEDS: THIAMINE HCL 100 MG TABLET PO SCH (09:43)
[2017-09-26] MEDS: ASPIRIN 81 MG CHEWABLE TABLET PO SCH (09:43)
[2017-09-26] MEDS: METOPROLOL TARTRATE 50 MG TABLET PO SCH ×2 (09:47→20:38)
[2017-09-26] MEDS: MAGNESIUM OXIDE 400 MG TABLET PO SCH ×2 (09:47→20:38)
[2017-09-26 10:47] LABS: BASOPHILS % (AUTO) 0.6 % (0.0-2.0); EOSINOPHILS % (AUTO) 1.3 % (1.0-6.0); HEMATOCRIT 32.7 % (36-46); HEMOGLOBIN 10.4 g/dL (12.0-16.0); LYMPHOCYTES # (AUTO) 1.2 K/uL (1.0-4.8); LYMPHOCYTES % (AUTO) 10.1 % (22.0-44.0); MEAN CORPUSCULAR HEMOGLOBIN 27.4 pg (26.0-34.0); MEAN CORPUSCULAR HGB CONC 31.6 G/dL (31.0-37.0); MEAN CORPUSCULAR VOLUME 87 fL (80-100); MONOCYTES # (AUTO) 0.8 K/uL (0.1-1.0); NEUTROPHILS # (AUTO) 9.7 K/uL (1.8-7.7); PLATELET COUNT (AUTO) 324 K/uL (150-450); RED BLOOD CELL COUNT(AUTO) 3.78 MIL/uL (4.00-5.20); RED CELL DISTRIBUTION WIDTH 19.1 % (11.5-14.5)
[2017-09-26 10:50] LABS: ANION GAP 10 mmol/L (8-16); CALCIUM, TOTAL 8.7 mg/dL (8.8-10.5); CARBON DIOXIDE 23 mmol/L (22-29); CHLORIDE 104 mmol/L (98-107); CREATININE 0.73 mg/dL (0.60-1.30); GLOMERULAR FILTR. RATE CALC > 60 mL/min (>60); GLUCOSE,RANDOM 171 mg/dL (70-110); SODIUM SERUM 137 mmol/L (136-145); UREA NITROGEN, BLOOD 26 mg/dL (7-18)
[2017-09-26] MEDS ORDERED: MAGNESIUM OXIDE 400 MG TABLET PO PRN (11:45)
[2017-09-26] MEDS ORDERED: MAGNESIUM SULFATE 4 GM/WATER 100 ML IV PRN (11:45)
[2017-09-26] MEDS ORDERED: MAGNESIUM GLUCONATE 1 GM/5 ML LIQUID 22 ML UDCUP NG PRN (11:45)
[2017-09-26] MEDS: BACITRACIN 28.4 GM OINTMENT TP SCH ×2 (12:41→20:39)
[2017-09-26] MEDS: MAGNESIUM SULFATE 2 GM/WATER 50 ML IV PRN (13:55)
[2017-09-26 14:54] LABS: GLUCOSE,POINT OF CARE 159 MG/DL (70-110)
[2017-09-26 16:54] LABS: GLUCOSE,POINT OF CARE 129 MG/DL (70-110)
[2017-09-26] MEDS: DOCUSATE SODIUM 250 MG CAPSULE PO SCH (20:37)
[2017-09-26] MEDS: ATORVASTATIN CALCIUM 40 MG TABLET PO SCH (20:38)
[2017-09-26] MEDS: LOSARTAN POTASSIUM 25 MG TABLET PO SCH (21:33)
[2017-09-27] VITALS: BP 157/68
[2017-09-27] MEDS: PROPOFOL 1000 MG/ISO-OSM 100 ML IV PRN ×5 (00:57→20:00)
[2017-09-27 04:00] VITALS: BP 169/71
[2017-09-27 05:00] LABS: BASOPHILS % (AUTO) 0.5 % (0.0-2.0); EOSINOPHILS % (AUTO) 2.6 % (1.0-6.0); HEMOGLOBIN 10.6 g/dL (12.0-16.0); LYMPHOCYTES # (AUTO) 1.9 K/uL (1.0-4.8); MEAN CORPUSCULAR HEMOGLOBIN 27.2 pg (26.0-34.0); MEAN CORPUSCULAR VOLUME 85 fL (80-100); MONOCYTES % (AUTO) 8.5 % (2.0-9.0); NEUTROPHILS # (AUTO) 8.8 K/uL (1.8-7.7); NEUTROPHILS % (AUTO) 72.4 % (40.0-70.0); PLATELET COUNT (AUTO) 335 K/uL (150-450); RED BLOOD CELL COUNT(AUTO) 3.88 MIL/uL (4.00-5.20); RED CELL DISTRIBUTION WIDTH 19.2 % (11.5-14.5)
[2017-09-27] MEDS: INSULIN LISPRO 100 UNITS/ML SQ SCH ×3 (05:16→17:15)
[2017-09-27 05:24] LABS: ALANINE AMINOTRANSFERASE 7 U/L (12-78); ALBUMIN 1.7 g/dL (3.4-5.0); ALKALINE PHOSPHATASE 91 U/L (46-116); ANION GAP 10 mmol/L (8-16); ASPARTATE AMINOTRANSFERASE 17 U/L (15-37); BILIRUBIN,TOTAL 0.3 mg/dL (0.1-1.0); CALCIUM, TOTAL 8.4 mg/dL (8.8-10.5); CARBON DIOXIDE 26 mmol/L (22-29); CHLORIDE 104 mmol/L (98-107); CREATININE 0.67 mg/dL (0.60-1.30); GLOMERULAR FILTR. RATE CALC > 60 mL/min (>60); GLUCOSE,RANDOM 146 mg/dL (70-110); POTASSIUM 3.2 mmol/L (3.5-5.1); SODIUM SERUM 140 mmol/L (136-145); TOTAL PROTEIN, SERUM 6.1 g/dL (6.4-8.2); UREA NITROGEN, BLOOD 27 mg/dL (7-18)
[2017-09-27] MEDS: AZTREONAM 2 GM in DEXTROSE 5%-WATER 50 ML IV SCH ×3 (06:36→22:59)
[2017-09-27] MEDS: POTASSIUM CHLORIDE 10% 40 MEQ/30 ML LIQUID UDCUP NG PRN ×2 (06:50→13:18)
[2017-09-27 08:00] VITALS: BP 153/74
[2017-09-27 08:25] LABS: GLUCOSE,POINT OF CARE 135 MG/DL (70-110)
[2017-09-27 08:25] LABS: GLUCOSE,POINT OF CARE 111 MG/DL (70-110)
[2017-09-27] MEDS: FERROUS SULFATE 300 MG/5 ML LIQUID UDCUP NG SCH ×3 (08:40→20:49)
[2017-09-27] MEDS: PANTOPRAZOLE SODIUM 40 MG/VIAL IVP SCH (08:40)
[2017-09-27] MEDS: ETHACRYNIC ACID 25 MG PO SCH ×2 (08:40→20:49)
[2017-09-27] MEDS: MULTIVITAMINS, THERAPEUTIC 15 ML UDCUP NG SCH (08:41)
[2017-09-27] MEDS: THIAMINE HCL 100 MG TABLET PO SCH (08:41)
[2017-09-27] MEDS: CITALOPRAM HYDROBROMIDE 10 MG TABLET PO SCH (08:41)
[2017-09-27] MEDS: FAMOTIDINE 20 MG TABLET PO SCH (08:41)
[2017-09-27] MEDS: LOSARTAN POTASSIUM 25 MG TABLET PO SCH ×2 (08:41→20:50)
[2017-09-27] MEDS: ASPIRIN 81 MG CHEWABLE TABLET PO SCH (08:42)
[2017-09-27] MEDS: AcetaZOLAMIDE 250 MG TABLET PO SCH ×2 (08:42→20:50)
[2017-09-27] MEDS: HEPARIN SODIUM,PORCINE 5,000 UNITS/ML VIAL SQ SCH ×2 (08:43→15:53)
[2017-09-27] MEDS: METOPROLOL TARTRATE 50 MG TABLET PO SCH ×2 (08:43→20:50)
[2017-09-27] MEDS: MAGNESIUM OXIDE 400 MG TABLET PO SCH ×2 (08:43→20:49)
[2017-09-27] MEDS: AMINO ACIDS/PROTEIN HYDROLYS 30 ML TUBE PO SCH ×4 (08:44→21:23)
[2017-09-27] MEDS: BACLOFEN 10 MG TABLET PO SCH ×3 (08:44→20:50)
[2017-09-27] MEDS: OXYGEN THERAPY IH SCH ×2 (11:12→20:00)
[2017-09-27] MEDS: BACITRACIN 28.4 GM OINTMENT TP SCH ×2 (11:12→21:23)
[2017-09-27 12:00] VITALS: BP 151/79
[2017-09-27] MEDS ORDERED: SODIUM CHLORIDE 0.9% 250 ML IV ONE (14:34)
[2017-09-27 16:00] VITALS: BP 164/74
[2017-09-27] MEDS ORDERED: VANCOMYCIN HCL 1.5 GM in DEXTROSE 5%-WATER 250 ML IV ONE (16:30)
[2017-09-27 16:44] LABS: GLUCOSE,POINT OF CARE 132 MG/DL (70-110)
[2017-09-27 20:00] VITALS: BP 139/79
[2017-09-27] MEDS: DOCUSATE SODIUM 250 MG CAPSULE PO SCH (20:49)
[2017-09-27] MEDS: ATORVASTATIN CALCIUM 40 MG TABLET PO SCH (20:49)
[2017-09-27] MEDS: VANCOMYCIN HCL 1.25 GM in DEXTROSE 5%-WATER 250 ML IV SCH (22:59)
[2017-09-28] VITALS: BP 153/56
[2017-09-28] MEDS: INSULIN LISPRO 100 UNITS/ML SQ PRN (00:06)
[2017-09-28] MEDS: HEPARIN SODIUM,PORCINE 5,000 UNITS/ML VIAL SQ SCH ×4 (00:07→23:11)
[2017-09-28] MEDS: PROPOFOL 1000 MG/ISO-OSM 100 ML IV PRN ×6 (00:07→23:12)
[2017-09-28 04:00] VITALS: BP 150/65
[2017-09-28 05:09] LABS: BASOPHILS % (AUTO) 0.7 % (0.0-2.0); EOSINOPHILS % (AUTO) 2.6 % (1.0-6.0); HEMATOCRIT 33.4 % (36-46); HEMOGLOBIN 10.4 g/dL (12.0-16.0); LYMPHOCYTES % (AUTO) 14.5 % (22.0-44.0); MEAN CORPUSCULAR HEMOGLOBIN 27.2 pg (26.0-34.0); MEAN CORPUSCULAR HGB CONC 31.2 G/dL (31.0-37.0); MEAN CORPUSCULAR VOLUME 87 fL (80-100); MONOCYTES # (AUTO) 0.8 K/uL (0.1-1.0); MONOCYTES % (AUTO) 5.5 % (2.0-9.0); NEUTROPHILS # (AUTO) 10.9 K/uL (1.8-7.7); NEUTROPHILS % (AUTO) 76.7 % (40.0-70.0); PLATELET COUNT (AUTO) 331 K/uL (150-450); RED BLOOD CELL COUNT(AUTO) 3.84 MIL/uL (4.00-5.20); RED CELL DISTRIBUTION WIDTH 18.9 % (11.5-14.5)
[2017-09-28 05:27] LABS: ALKALINE PHOSPHATASE 90 U/L (46-116); ANION GAP 10 mmol/L (8-16); BILIRUBIN,TOTAL 0.3 mg/dL (0.1-1.0); CALCIUM, TOTAL 8.1 mg/dL (8.8-10.5); CARBON DIOXIDE 24 mmol/L (22-29); CHLORIDE 105 mmol/L (98-107); GLOMERULAR FILTR. RATE CALC > 60 mL/min (>60); GLUCOSE,RANDOM 144 mg/dL (70-110); POTASSIUM 3.3 mmol/L (3.5-5.1); SODIUM SERUM 139 mmol/L (136-145); UREA NITROGEN, BLOOD 30 mg/dL (7-18)
[2017-09-28 05:28] LABS: ALANINE AMINOTRANSFERASE 7 U/L (12-78); ALBUMIN 1.5 g/dL (3.4-5.0); ASPARTATE AMINOTRANSFERASE 9 U/L (15-37); TOTAL PROTEIN, SERUM 5.7 g/dL (6.4-8.2)
[2017-09-28] MEDS: POTASSIUM CHLORIDE 10% 40 MEQ/30 ML LIQUID UDCUP NG PRN ×2 (05:58→20:18)
[2017-09-28] MEDS: INSULIN LISPRO 100 UNITS/ML SQ SCH ×3 (05:59→17:17)
[2017-09-28] MEDS: AZTREONAM 2 GM in DEXTROSE 5%-WATER 50 ML IV SCH ×3 (06:00→22:20)
[2017-09-28] MEDS ORDERED: SODIUM CHLORIDE 0.9% 250 ML IV ONE ×3 (06:07→22:49)
[2017-09-28] MEDS: VANCOMYCIN HCL 1.25 GM in DEXTROSE 5%-WATER 250 ML IV SCH ×3 (06:10→22:20)
[2017-09-28] MEDS: MAGNESIUM SULFATE 2 GM/WATER 50 ML IV PRN (06:10)
[2017-09-28 06:58] LABS: GLUCOSE,POINT OF CARE 130 MG/DL (70-110)
[2017-09-28 08:00] VITALS: BP 143/65
[2017-09-28] MEDS: OXYGEN THERAPY IH SCH ×2 (08:07→19:50)
[2017-09-28] MEDS: FERROUS SULFATE 300 MG/5 ML LIQUID UDCUP NG SCH ×3 (08:09→20:12)
[2017-09-28] MEDS: MULTIVITAMINS, THERAPEUTIC 15 ML UDCUP NG SCH (08:09)
[2017-09-28] MEDS: PANTOPRAZOLE SODIUM 40 MG/VIAL IVP SCH (08:10)
[2017-09-28] MEDS: THIAMINE HCL 100 MG TABLET PO SCH (08:11)
[2017-09-28] MEDS: METOPROLOL TARTRATE 50 MG TABLET PO SCH ×2 (08:11→20:14)
[2017-09-28] MEDS: ASPIRIN 81 MG CHEWABLE TABLET PO SCH (08:11)
[2017-09-28] MEDS: LOSARTAN POTASSIUM 25 MG TABLET PO SCH ×2 (08:12→20:13)
[2017-09-28] MEDS: CITALOPRAM HYDROBROMIDE 10 MG TABLET PO SCH (08:13)
[2017-09-28] MEDS: ETHACRYNIC ACID 25 MG TABLET PO SCH ×2 (08:13→20:13)
[2017-09-28] MEDS: BACLOFEN 10 MG TABLET PO SCH ×3 (08:15→20:14)
[2017-09-28] MEDS: AcetaZOLAMIDE 250 MG TABLET PO SCH ×2 (08:16→20:13)
[2017-09-28] MEDS: FAMOTIDINE 20 MG TABLET PO SCH (08:17)
[2017-09-28] MEDS: AMINO ACIDS/PROTEIN HYDROLYS 30 ML TUBE PO SCH ×4 (08:22→20:17)
[2017-09-28] MEDS: MAGNESIUM OXIDE 400 MG TABLET PO SCH ×2 (08:22→20:15)
[2017-09-28] MEDS: BACITRACIN 28.4 GM OINTMENT TP SCH ×2 (08:23→20:16)
[2017-09-28 10:33] LABS: GLUCOSE,POINT OF CARE 127 MG/DL (70-110)
[2017-09-28 10:33] LABS: GLUCOSE,POINT OF CARE 141 MG/DL (70-110)
[2017-09-28 11:13] LABS: GLUCOSE,POINT OF CARE 129 MG/DL (70-110)
[2017-09-28 12:00] VITALS: BP 151/66
[2017-09-28 16:00] VITALS: BP 93/43
[2017-09-28 17:39] LABS: GLUCOSE,POINT OF CARE 102 MG/DL (70-110)
[2017-09-28 20:00] VITALS: BP 124/56
[2017-09-28] MEDS: DOCUSATE SODIUM 250 MG CAPSULE PO SCH (20:12)
[2017-09-28] MEDS: ATORVASTATIN CALCIUM 40 MG TABLET PO SCH (20:14)
[2017-09-29] VITALS: BP 142/72
[2017-09-29 04:00] VITALS: BP 135/64
[2017-09-29 04:28] LABS: GLUCOSE,POINT OF CARE 106 MG/DL (70-110)
[2017-09-29] MEDS: PROPOFOL 1000 MG/ISO-OSM 100 ML IV PRN ×6 (04:33→23:13)
[2017-09-29 05:45] LABS: BASOPHILS % (AUTO) 0.5 % (0.0-2.0); EOSINOPHILS % (AUTO) 2.7 % (1.0-6.0); HEMATOCRIT 33.4 % (36-46); HEMOGLOBIN 10.4 g/dL (12.0-16.0); LYMPHOCYTES # (AUTO) 2.1 K/uL (1.0-4.8); LYMPHOCYTES % (AUTO) 13.2 % (22.0-44.0); MEAN CORPUSCULAR HEMOGLOBIN 27.1 pg (26.0-34.0); MEAN CORPUSCULAR HGB CONC 31.1 G/dL (31.0-37.0); MEAN CORPUSCULAR VOLUME 87 fL (80-100); MONOCYTES # (AUTO) 0.8 K/uL (0.1-1.0); NEUTROPHILS # (AUTO) 12.7 K/uL (1.8-7.7); NEUTROPHILS % (AUTO) 78.6 % (40.0-70.0); PLATELET COUNT (AUTO) 366 K/uL (150-450); RED BLOOD CELL COUNT(AUTO) 3.83 MIL/uL (4.00-5.20); RED CELL DISTRIBUTION WIDTH 19.1 % (11.5-14.5)
[2017-09-29 06:06] LABS: ANION GAP 8 mmol/L (8-16); CALCIUM, TOTAL 8.1 mg/dL (8.8-10.5); CARBON DIOXIDE 23 mmol/L (22-29); CHLORIDE 106 mmol/L (98-107); CREATININE 0.65 mg/dL (0.60-1.30); GLOMERULAR FILTR. RATE CALC > 60 mL/min (>60); GLUCOSE,RANDOM 119 mg/dL (70-110); PHOSPHORUS 4.2 mg/dL (2.5-4.9); POTASSIUM 3.4 mmol/L (3.5-5.1); SODIUM SERUM 137 mmol/L (136-145); THYROID STIMULATING HORMONE 3.35 uIU/mL (0.36-3.74); UREA NITROGEN, BLOOD 31 mg/dL (7-18)
[2017-09-29] MEDS: AZTREONAM 2 GM in DEXTROSE 5%-WATER 50 ML IV SCH ×3 (06:09→23:06)
[2017-09-29] MEDS: INSULIN LISPRO 100 UNITS/ML SQ SCH ×3 (06:10→17:00)
[2017-09-29] MEDS: VANCOMYCIN HCL 1.25 GM in DEXTROSE 5%-WATER 250 ML IV SCH (06:10)
[2017-09-29 06:49] LABS: GLUCOSE,POINT OF CARE 100 MG/DL (70-110)
[2017-09-29 08:00] VITALS: BP 131/58
[2017-09-29] MEDS: OXYGEN THERAPY IH SCH ×2 (08:11→09:42)
[2017-09-29] MEDS ORDERED: VANCOMYCIN HCL 1 GM/D5% WATER 200 ML IV PRN (08:15)
[2017-09-29 08:20] LABS: ABG A-A DIFF O2 76.7 mmHg (10-20.0); ABG BASE EXCESS -6.4 mmol/L (-2.0-3.0); ABG CARBOXYHEMOGLOBIN 0.4 % (0.0-1.5); ABG HCO3 19.9 mmol/L (22.0-26.0); ABG METHEMOGLOBIN 0.4 % (0.0-1.5); ABG OXYGEN CONTENT 14.9 mL/dL (15.0-23.0); ABG OXYGEN SATURATION 98.9 % (95.0-98.0); ABG OXYHEMOGLOBIN 98.1 % (94.0-100.0); ABG PCO2 32 mmHg (35-45); ABG PH 7.383 (7.35-7.450); ABG TOTAL HEMOGLOBIN 10.6 G/dL (12.0-18.0); PO2, ARTERIAL BG 135.7 mmHg (79.0-87.0); SOURCE, BLOOD GAS ARTERIAL; TEMPERATURE, FAHRENHEIT, BG 98.6 FAHREN (96.0-98.6)
[2017-09-29 08:21] LABS: O2 DEVICE,BLOOD GAS VENTILATOR (ROOM AIR); PEEP,BG 5 cm H2O; SITE, BLOOD GAS RT RADIAL; VT, ABG 550 ml
[2017-09-29] MEDS: HEPARIN SODIUM,PORCINE 5,000 UNITS/ML VIAL SQ SCH ×3 (09:43→23:06)
[2017-09-29] MEDS: BACITRACIN 28.4 GM OINTMENT TP SCH ×2 (09:43→20:49)
[2017-09-29] MEDS: PANTOPRAZOLE SODIUM 40 MG/VIAL IVP SCH (09:44)
[2017-09-29] MEDS: FERROUS SULFATE 300 MG/5 ML LIQUID UDCUP NG SCH ×3 (09:45→20:47)
[2017-09-29] MEDS: MULTIVITAMINS, THERAPEUTIC 15 ML UDCUP NG SCH (09:45)
[2017-09-29] MEDS: FAMOTIDINE 20 MG TABLET PO SCH (09:45)
[2017-09-29] MEDS: MAGNESIUM OXIDE 400 MG TABLET PO SCH ×2 (09:46→20:48)
[2017-09-29] MEDS: ASPIRIN 81 MG CHEWABLE TABLET PO SCH (09:46)
[2017-09-29] MEDS: CITALOPRAM HYDROBROMIDE 10 MG TABLET PO SCH (09:47)
[2017-09-29] MEDS: METOPROLOL TARTRATE 50 MG TABLET PO SCH ×2 (09:47→20:48)
[2017-09-29] MEDS: POTASSIUM CHLORIDE 10% 40 MEQ/30 ML LIQUID UDCUP NG PRN (09:47)
[2017-09-29] MEDS: THIAMINE HCL 100 MG TABLET PO SCH (09:47)
[2017-09-29] MEDS: BACLOFEN 10 MG TABLET PO SCH ×3 (09:47→20:48)
[2017-09-29] MEDS: AcetaZOLAMIDE 250 MG TABLET PO SCH ×2 (09:48→20:47)
[2017-09-29] MEDS: ETHACRYNIC ACID 25 MG TABLET PO SCH ×2 (09:48→20:47)
[2017-09-29] MEDS: LOSARTAN POTASSIUM 25 MG TABLET PO SCH ×2 (09:48→20:48)
[2017-09-29] MEDS: AMINO ACIDS/PROTEIN HYDROLYS 30 ML TUBE PO SCH ×3 (09:49→16:07)
[2017-09-29 12:00] VITALS: BP 126/59
[2017-09-29 14:29] LABS: GLUCOSE,POINT OF CARE 140 MG/DL (70-110)
[2017-09-29 16:00] VITALS: BP 139/68
[2017-09-29] MEDS ORDERED: INSULIN LISPRO 100 UNITS/ML SQ ONE (19:15)
[2017-09-29 19:29] LABS: GLUCOSE,POINT OF CARE 88 MG/DL (70-110)
[2017-09-29 20:00] VITALS: BP 145/70
[2017-09-29] MEDS: ATORVASTATIN CALCIUM 40 MG TABLET PO SCH (20:47)
[2017-09-29] MEDS: DOCUSATE SODIUM 250 MG CAPSULE PO SCH (20:48)
[2017-09-29] MEDS: LORazepam 2 MG/ML VIAL IVP PRN (20:50)
[2017-09-29 23:10] LABS: C.DIFF GDH ANTIGEN, Stool Negative (Negative); C.DIFF TOXINS A&B, Stool Negative (Negative)
[2017-09-30] VITALS: BP 102/53
[2017-09-30 02:14] LABS: GLUCOSE,POINT OF CARE 118 MG/DL (70-110)
[2017-09-30] MEDS: PROPOFOL 1000 MG/ISO-OSM 100 ML IV PRN ×4 (03:55→22:45)
[2017-09-30 04:00] VITALS: BP 112/55
[2017-09-30 05:32] LABS: BASOPHILS % (AUTO) 0.7 % (0.0-2.0); EOSINOPHILS % (AUTO) 2.7 % (1.0-6.0); HEMATOCRIT 33.1 % (36-46); HEMOGLOBIN 10.4 g/dL (12.0-16.0); LYMPHOCYTES # (AUTO) 2.1 K/uL (1.0-4.8); LYMPHOCYTES % (AUTO) 14.4 % (22.0-44.0); MEAN CORPUSCULAR HEMOGLOBIN 27.2 pg (26.0-34.0); MEAN CORPUSCULAR HGB CONC 31.4 G/dL (31.0-37.0); MEAN CORPUSCULAR VOLUME 87 fL (80-100); MONOCYTES # (AUTO) 0.6 K/uL (0.1-1.0); MONOCYTES % (AUTO) 4.1 % (2.0-9.0); NEUTROPHILS # (AUTO) 11.2 K/uL (1.8-7.7); NEUTROPHILS % (AUTO) 78.1 % (40.0-70.0); PLATELET COUNT (AUTO) 366 K/uL (150-450); RED BLOOD CELL COUNT(AUTO) 3.82 MIL/uL (4.00-5.20); RED CELL DISTRIBUTION WIDTH 19.4 % (11.5-14.5)
[2017-09-30 05:58] LABS: ALANINE AMINOTRANSFERASE 10 U/L (12-78); ALBUMIN 1.4 g/dL (3.4-5.0); ALKALINE PHOSPHATASE 95 U/L (46-116); ANION GAP 12 mmol/L (8-16); ASPARTATE AMINOTRANSFERASE 13 U/L (15-37); BILIRUBIN,TOTAL 0.3 mg/dL (0.1-1.0); CARBON DIOXIDE 20 mmol/L (22-29); CHLORIDE 108 mmol/L (98-107); CREATININE 0.73 mg/dL (0.60-1.30); GLOMERULAR FILTR. RATE CALC > 60 mL/min (>60); GLUCOSE,RANDOM 118 mg/dL (70-110); POTASSIUM 3.4 mmol/L (3.5-5.1); SODIUM SERUM 140 mmol/L (136-145); UREA NITROGEN, BLOOD 35 mg/dL (7-18); VANCOMYCIN,RANDOM 35.6 mcg/mL (25.0-50.0)
[2017-09-30] MEDS: INSULIN LISPRO 100 UNITS/ML SQ SCH ×3 (06:30→18:11)
[2017-09-30] MEDS: POTASSIUM CHLORIDE 10% 40 MEQ/30 ML LIQUID UDCUP NG PRN ×2 (06:33→20:07)
[2017-09-30] MEDS: AZTREONAM 2 GM in DEXTROSE 5%-WATER 50 ML IV SCH ×3 (06:34→22:45)
[2017-09-30 06:54] LABS: GLUCOSE,POINT OF CARE 107 MG/DL (70-110)
[2017-09-30 08:00] VITALS: BP 164/79
[2017-09-30] MEDS: BACITRACIN 28.4 GM OINTMENT TP SCH ×2 (08:37→20:06)
[2017-09-30] MEDS: MULTIVITAMINS, THERAPEUTIC 15 ML UDCUP NG SCH (08:37)
[2017-09-30] MEDS: AcetaZOLAMIDE 250 MG TABLET PO SCH ×2 (08:38→20:06)
[2017-09-30] MEDS: PANTOPRAZOLE SODIUM 40 MG/VIAL IVP SCH (08:38)
[2017-09-30] MEDS: LOSARTAN POTASSIUM 25 MG TABLET PO SCH ×2 (08:38→20:05)
[2017-09-30] MEDS: BACLOFEN 10 MG TABLET PO SCH ×3 (08:39→20:06)
[2017-09-30] MEDS: THIAMINE HCL 100 MG TABLET PO SCH (08:39)
[2017-09-30] MEDS: ASPIRIN 81 MG CHEWABLE TABLET PO SCH (08:39)
[2017-09-30] MEDS: METOPROLOL TARTRATE 50 MG TABLET PO SCH ×2 (08:39→20:06)
[2017-09-30] MEDS: FAMOTIDINE 20 MG TABLET PO SCH (08:40)
[2017-09-30] MEDS: HEPARIN SODIUM,PORCINE 5,000 UNITS/ML VIAL SQ SCH ×3 (08:40→23:48)
[2017-09-30] MEDS: CITALOPRAM HYDROBROMIDE 10 MG TABLET PO SCH (08:40)
[2017-09-30] MEDS: ETHACRYNIC ACID 25 MG TABLET PO SCH ×2 (08:41→21:15)
[2017-09-30] MEDS: FERROUS SULFATE 300 MG/5 ML LIQUID UDCUP NG SCH ×3 (08:41→20:04)
[2017-09-30] MEDS: LORazepam 2 MG/ML VIAL IVP PRN (08:42)
[2017-09-30] MEDS: MAGNESIUM OXIDE 400 MG TABLET PO SCH ×2 (08:42→20:06)
[2017-09-30] MEDS: AMINO ACIDS/PROTEIN HYDROLYS 30 ML TUBE PO SCH ×3 (08:43→15:47)
[2017-09-30 12:00] VITALS: BP 164/79
[2017-09-30 13:00] LABS: GLUCOSE,POINT OF CARE 116 MG/DL (70-110)
[2017-09-30] MEDS ORDERED: SODIUM CHLORIDE 0.9% 100 ML ONE (15:42)
[2017-09-30 16:00] VITALS: BP 111/58
[2017-09-30 18:04] LABS: GLUCOSE,POINT OF CARE 117 MG/DL (70-110)
[2017-09-30] MEDS ORDERED: SODIUM CHLORIDE 0.9% 250 ML IV ONE (19:58)
[2017-09-30 20:00] VITALS: BP 130/56
[2017-09-30] MEDS: DOCUSATE SODIUM 250 MG CAPSULE PO SCH (20:05)
[2017-09-30] MEDS: ATORVASTATIN CALCIUM 40 MG TABLET PO SCH (20:06)
[2017-10-01] VITALS: BP 117/52
[2017-10-01] MEDS: PROPOFOL 1000 MG/ISO-OSM 100 ML IV PRN ×2 (02:39→06:09)
[2017-10-01 04:00] VITALS: BP 95/47
[2017-10-01 05:02] LABS: BASOPHILS % (AUTO) 0.8 % (0.0-2.0); EOSINOPHILS % (AUTO) 2.4 % (1.0-6.0); HEMATOCRIT 31.1 % (36-46); HEMOGLOBIN 9.8 g/dL (12.0-16.0); LYMPHOCYTES # (AUTO) 1.8 K/uL (1.0-4.8); LYMPHOCYTES % (AUTO) 12.7 % (22.0-44.0); MEAN CORPUSCULAR HEMOGLOBIN 26.9 pg (26.0-34.0); MEAN CORPUSCULAR HGB CONC 31.4 G/dL (31.0-37.0); MEAN CORPUSCULAR VOLUME 86 fL (80-100); MONOCYTES # (AUTO) 0.5 K/uL (0.1-1.0); MONOCYTES % (AUTO) 3.7 % (2.0-9.0); NEUTROPHILS # (AUTO) 11.1 K/uL (1.8-7.7); NEUTROPHILS % (AUTO) 80.4 % (40.0-70.0); PLATELET COUNT (AUTO) 401 K/uL (150-450); RED BLOOD CELL COUNT(AUTO) 3.63 MIL/uL (4.00-5.20); RED CELL DISTRIBUTION WIDTH 18.8 % (11.5-14.5)
[2017-10-01 05:28] LABS: ALANINE AMINOTRANSFERASE 13 U/L (12-78); ALBUMIN 1.4 g/dL (3.4-5.0); ALKALINE PHOSPHATASE 94 U/L (46-116); ANION GAP 10 mmol/L (8-16); ASPARTATE AMINOTRANSFERASE 31 U/L (15-37); BILIRUBIN,TOTAL 0.4 mg/dL (0.1-1.0); CARBON DIOXIDE 20 mmol/L (22-29); CHLORIDE 111 mmol/L (98-107); CREATININE 0.67 mg/dL (0.60-1.30); GLOMERULAR FILTR. RATE CALC > 60 mL/min (>60); GLUCOSE,RANDOM 110 mg/dL (70-110); POTASSIUM 4.5 mmol/L (3.5-5.1); SODIUM SERUM 141 mmol/L (136-145); UREA NITROGEN, BLOOD 36 mg/dL (7-18)
[2017-10-01] MEDS: INSULIN LISPRO 100 UNITS/ML SQ SCH (06:09)
[2017-10-01] MEDS: AZTREONAM 2 GM in DEXTROSE 5%-WATER 50 ML IV SCH (06:09)
[2017-10-01 08:00] VITALS: BP 128/47
[2017-10-01 08:11] LABS: GLUCOSE,POINT OF CARE 101 MG/DL (70-110)
[2017-10-01 08:11] LABS: GLUCOSE,POINT OF CARE 111 MG/DL (70-110)
[2017-10-01] MEDS: AMINO ACIDS/PROTEIN HYDROLYS 30 ML TUBE PO SCH (08:16)
[2017-10-01] MEDS: FERROUS SULFATE 300 MG/5 ML LIQUID UDCUP NG SCH (08:17)
[2017-10-01] MEDS: PANTOPRAZOLE SODIUM 40 MG/VIAL IVP SCH (08:17)
[2017-10-01] MEDS: HEPARIN SODIUM,PORCINE 5,000 UNITS/ML VIAL SQ SCH (08:17)
[2017-10-01] MEDS: MULTIVITAMINS, THERAPEUTIC 15 ML UDCUP NG SCH (08:18)
[2017-10-01] MEDS: LOSARTAN POTASSIUM 25 MG TABLET PO SCH (08:18)
[2017-10-01] MEDS: ASPIRIN 81 MG CHEWABLE TABLET PO SCH (08:19)
[2017-10-01] MEDS: MAGNESIUM OXIDE 400 MG TABLET PO SCH (08:19)
[2017-10-01] MEDS: BACLOFEN 10 MG TABLET PO SCH (08:20)
[2017-10-01] MEDS: ETHACRYNIC ACID 25 MG TABLET PO SCH (08:20)
[2017-10-01] MEDS: AcetaZOLAMIDE 250 MG TABLET PO SCH (08:22)
[2017-10-01] MEDS: CITALOPRAM HYDROBROMIDE 10 MG TABLET PO SCH (08:23)
[2017-10-01] MEDS: FAMOTIDINE 20 MG TABLET PO SCH (08:24)
[2017-10-01] MEDS: THIAMINE HCL 100 MG TABLET PO SCH (08:26)
[2017-10-01] MEDS: METOPROLOL TARTRATE 50 MG TABLET PO SCH (08:26)
== END 2017-10-01 10:25 | DRG 853 ==
LOC: 6N 09-19 10:32 → ICU 09-19 12:19 → 5S 09-21 15:50 → 6N 09-22 18:55 → ICU 09-22 21:20
PROVIDERS: ADMIT Surgery Plastic and Reconstructive Surgery; ATTEND Surgery Plastic and Reconstructive Surgery
PROC: 0QB10ZZ Excision of Sacrum, Open Approach (ICD-10-PCS; 2017-09-19)
PROC: 0KXP0ZZ Transfer Left Hip Muscle, Open Approach (ICD-10-PCS; 2017-09-19)
PROC: 0JXL0ZZ Transfer Right Upper Leg Subcutaneous Tissue and Fascia, Open Approach (ICD-10-PCS; 2017-09-19)
PROC: 30233N1 Transfusion of Nonautologous Red Blood Cells into Peripheral Vein, Percutaneous Approach (ICD-10-PCS; 2017-09-19)
PROC: 0JB70ZZ Excision of Back Subcutaneous Tissue and Fascia, Open Approach (ICD-10-PCS; principal; 2017-09-19 12:00)
PROC: 5A1955Z Respiratory Ventilation, Greater than 96 Consecutive Hours (ICD-10-PCS; 2017-09-23)
PROC: 0BH17EZ Insertion of Endotracheal Airway into Trachea, Via Natural or Artificial Opening (ICD-10-PCS; 2017-09-23)
DX: A41.9 Sepsis, unspecified organism (principal); J69.0 Pneumonitis due to inhalation of food and vomit; J96.02 Acute respiratory failure with hypercapnia; M86.9 Osteomyelitis, unspecified; N39.0 Urinary tract infection, site not specified; N17.9 Acute kidney failure, unspecified; L03.115 Cellulitis of right lower limb; L03.116 Cellulitis of left lower limb; I50.32 Chronic diastolic (congestive) heart failure; Z99.11 Dependence on respirator [ventilator] status; L89.159 Pressure ulcer of sacral region, unspecified stage; E78.5 Hyperlipidemia, unspecified; F03.90 Unspecified dementia, unspecified severity, without behavioral disturbance, psychotic disturbance, mood disturbance, and anxiety; D64.9 Anemia, unspecified; E11.69 Type 2 diabetes mellitus with other specified complication; E78.00 Pure hypercholesterolemia, unspecified; G47.33 Obstructive sleep apnea (adult) (pediatric); I11.0 Hypertensive heart disease with heart failure; E66.01 Morbid (severe) obesity due to excess calories; E87.6 Hypokalemia; T50.2X5A Adverse effect of carbonic-anhydrase inhibitors, benzothiadiazides and other diuretics, initial encounter; I35.0 Nonrheumatic aortic (valve) stenosis; J44.9 Chronic obstructive pulmonary disease, unspecified; I48.91 Unspecified atrial fibrillation; Z93.3 Colostomy status; Z88.8 Allergy status to other drugs, medicaments and biological substances
CPT/HCPCS: 36245; 71250; 76937; 82805; 83735; 84100; 84132; 84443; 85007; 85014; 85018; 86850; 86900; 86901; 86920; 87070; 87081; 87086; 87205; 87324; 87449; 88304; 93005; 93306; 93970; 94002; 94003; 94660; C9113; C9290; J0131; J0330; J0690; J1170; J1580; J1644; J1815; J2060; J2250; J2270; J2704; J2765; J3010; J3370; J3475; J3480; J3490; J3535; J7030; J7040; J7050; J7060; J7120; P9016; P9047; Q9968

== ENCOUNTER → 2018-04-06 | Outpatient (CLI) | payer BC ==
[~2018-04-06] VITALS: Ht 172.7 cm; Wt 99.0 kg
[~2018-04-06] MED LIST: A20IH1 IH; ACET-2247 PO; ACET500C44 PO; ALPR0.5T8 PO; ASPI81 PO; ATOR40TA28 PO; CARV6 PO; CITA10TA68 PO; DIPH50 PO; DOCU250C91 PO; ETHA25TA2 PO; FAMO20 PO; FERR-89 PO; HYDR-309 PO; HYDR1VIA2 IVP; INSNOV SQ; LACT30L PO; MAGOX PO; METO50 PO; MOM30 PO; MULT-248 PO; ONDA4 PO; POLY15DR38 OU; PROT480P PO; SENN-176 PO; THIA100T67 PO; VALS80TA2 PO
[2018-04-06 08:19] VITALS: BP 144/58
== END | disposition home or self-care (01) ==
LOC: HBOWC 07:38
PROVIDERS: ATTEND Surgery Plastic and Reconstructive Surgery
DX: T86.828 Other complications of skin graft (allograft) (autograft) (principal); E11.622 Type 2 diabetes mellitus with other skin ulcer; L89.154 Pressure ulcer of sacral region, stage 4; L98.496 Non-pressure chronic ulcer of skin of other sites with bone involvement without evidence of necrosis; I89.0 Lymphedema, not elsewhere classified; E11.42 Type 2 diabetes mellitus with diabetic polyneuropathy; E78.5 Hyperlipidemia, unspecified; E11.69 Type 2 diabetes mellitus with other specified complication; M86.9 Osteomyelitis, unspecified; I48.91 Unspecified atrial fibrillation; I11.0 Hypertensive heart disease with heart failure; I50.30 Unspecified diastolic (congestive) heart failure; J44.9 Chronic obstructive pulmonary disease, unspecified; E11.319 Type 2 diabetes mellitus with unspecified diabetic retinopathy without macular edema; G47.30 Sleep apnea, unspecified; H54.8 Legal blindness, as defined in USA; E66.01 Morbid (severe) obesity due to excess calories; F32.9 Major depressive disorder, single episode, unspecified; F41.9 Anxiety disorder, unspecified; Z68.42 Body mass index [BMI] 45.0-49.9, adult; Z87.891 Personal history of nicotine dependence; Z79.4 Long term (current) use of insulin; Y83.2 Surgical operation with anastomosis, bypass or graft as the cause of abnormal reaction of the patient, or of later complication, without mention of misadventure at the time of the procedure
CPT/HCPCS: 11044; 97605; G0463

== ENCOUNTER → 2018-10-26 | Outpatient (CLI) | payer BC ==
[~2018-10-26] VITALS: Ht 172.7 cm; Wt 98.0 kg
[~2018-10-26] MED LIST changes: -ACET500C44 PO; +ALBO180CR TP; +ASCO500 PO; +AUD NEB; +AZEL137S8 NASAL; +BISA-151 PO; +BRIM155OS OU; +DICL2100G TP; +DORZ210OS OU; +GUAIF600 PO; -HYDR1VIA2 IVP; +HYDR28.484 TP; +LIDO28CR2 PR; +LORA1TAB3 PO; +LOSA50TA64 PO; +MENT113O12 TP; +NYST30CR9 TP; +OS500 PO; +PANT40TA25 PO; +PERCT10 PO; +PERID15L PO; +PREG25 PO; +ZINC220 PO; +[UNRECOGNIZED DRUG - CODE] PO; +[UNRECOGNIZED DRUG - CODE] TP; +[UNRECOGNIZED DRUG - CODE] TP
[2018-10-26 09:42] VITALS: BP 149/78
== END | disposition home or self-care (01) ==
LOC: HBOWC 08:56
PROVIDERS: ATTEND Surgery Plastic and Reconstructive Surgery
DX: T86.828 Other complications of skin graft (allograft) (autograft) (principal); E11.622 Type 2 diabetes mellitus with other skin ulcer; L89.154 Pressure ulcer of sacral region, stage 4; L98.496 Non-pressure chronic ulcer of skin of other sites with bone involvement without evidence of necrosis; I89.0 Lymphedema, not elsewhere classified; E11.42 Type 2 diabetes mellitus with diabetic polyneuropathy; E78.5 Hyperlipidemia, unspecified; E11.69 Type 2 diabetes mellitus with other specified complication; M46.28 Osteomyelitis of vertebra, sacral and sacrococcygeal region; I48.91 Unspecified atrial fibrillation; I11.0 Hypertensive heart disease with heart failure; I50.30 Unspecified diastolic (congestive) heart failure; J44.9 Chronic obstructive pulmonary disease, unspecified; E11.319 Type 2 diabetes mellitus with unspecified diabetic retinopathy without macular edema; H54.8 Legal blindness, as defined in USA; G47.33 Obstructive sleep apnea (adult) (pediatric); E66.01 Morbid (severe) obesity due to excess calories; F41.8 Other specified anxiety disorders; Z68.42 Body mass index [BMI] 45.0-49.9, adult; Z87.891 Personal history of nicotine dependence; Z79.4 Long term (current) use of insulin; Z79.899 Other long term (current) drug therapy; Z88.1 Allergy status to other antibiotic agents; Z93.3 Colostomy status; Y83.2 Surgical operation with anastomosis, bypass or graft as the cause of abnormal reaction of the patient, or of later complication, without mention of misadventure at the time of the procedure
CPT/HCPCS: 11044

== ENCOUNTER → 2018-11-02 | Outpatient (CLI) | payer BC ==
[~2018-11-02] MED LIST changes: -A20IH1 IH; -ALPR0.5T8 PO; -CARV6 PO; -CITA10TA68 PO; +CRAN450T10 PO; -FAMO20 PO; -HYDR-309 PO; +LIDOCAINE 4% 50 ML SOLUTION TP ONE; +PHEN-846 PO; -PROT480P PO; -VALS80TA2 PO
[2018-11-02 11:38] VITALS: BP 140/61
== END | disposition home or self-care (01) ==
LOC: HBOWC 09:27
PROVIDERS: ATTEND Surgery Plastic and Reconstructive Surgery
DX: T86.828 Other complications of skin graft (allograft) (autograft) (principal); E11.622 Type 2 diabetes mellitus with other skin ulcer; L89.154 Pressure ulcer of sacral region, stage 4; L98.496 Non-pressure chronic ulcer of skin of other sites with bone involvement without evidence of necrosis; I89.0 Lymphedema, not elsewhere classified; E11.42 Type 2 diabetes mellitus with diabetic polyneuropathy; E78.5 Hyperlipidemia, unspecified; E11.69 Type 2 diabetes mellitus with other specified complication; M46.28 Osteomyelitis of vertebra, sacral and sacrococcygeal region; I48.91 Unspecified atrial fibrillation; I11.0 Hypertensive heart disease with heart failure; I50.30 Unspecified diastolic (congestive) heart failure; J44.9 Chronic obstructive pulmonary disease, unspecified; E11.319 Type 2 diabetes mellitus with unspecified diabetic retinopathy without macular edema; H54.8 Legal blindness, as defined in USA; G47.33 Obstructive sleep apnea (adult) (pediatric); E66.01 Morbid (severe) obesity due to excess calories; F41.8 Other specified anxiety disorders; Z68.42 Body mass index [BMI] 45.0-49.9, adult; Z87.891 Personal history of nicotine dependence; Z79.4 Long term (current) use of insulin; Z79.899 Other long term (current) drug therapy; Z88.1 Allergy status to other antibiotic agents; Z93.3 Colostomy status; Y83.2 Surgical operation with anastomosis, bypass or graft as the cause of abnormal reaction of the patient, or of later complication, without mention of misadventure at the time of the procedure
CPT/HCPCS: 11044